=== PATIENT | male | born 1945 | race Caucasian/White ===

== ENCOUNTER → 2016-07-04 | Outpatient (CLI) | payer OTHER ==
[~2016-07-04] MED LIST: ACET500C PO; ACYC1CAP8 PO; AMLO5TAB2 PO; ATOR1TAB21 PO; BENA25CA2 PO; CHLO25TA PO; CIAL20TA PO; COLA100C PO; FLON1SPR; OMEP10CASR PO; PERC5TAB6 PO; TETR250C3 PO
== END ==
LOC: M ONCR 15:09
PROVIDERS: ATTEND Radiology Radiation Oncology
DX: C61 Malignant neoplasm of prostate (principal)

== ENCOUNTER → 2016-07-06 | Outpatient (CLI) | payer OTHER | LOC: M ONCR 13:42 | PROVIDERS: ATTEND Radiology Radiation Oncology | DX: C61 Malignant neoplasm of prostate (principal) ==

== ENCOUNTER 2016-07-18 16:46 | Emergency (ER) | payer MEDICARE, OTHER ==
[2016-07-18] MEDS ORDERED: ASPIRIN 81 MG CHEW TABLET As Ordered ONE (17:45)
[2016-07-18 17:54] LABS: BASO % 0.7 % (0.0-1.0); EOS # 0.2 K/mm3 (0.0-0.50); EOS % 3.1 % (0.0-3.0); LARGE UNSTAINED CELL # 0.2 K/mm3 (0.0-0.4); LYMPH % 15.7 % (24.0-44.0); MEAN CORPUSCULAR HEMOGLOBIN 32.2 pg (27.0-33.0); MEAN CORPUSCULAR HGB CONC 34.4 g/dl (32.0-36.5); MEAN CORPUSCULAR VOLUME 93.8 fl (80.0-96.0); MONO # 0.4 K/mm3 (0.0-0.8); MONO % 6.2 % (0.0-5.0); NEUTROPHILS # 4.6 K/mm3 (1.8-7.7); NEUTROPHILS % 71.2 % (36.0-66.0); PLATELET COUNT, AUTOMATED 241 k/mm3 (150-450); WHITE BLOOD COUNT 6.5 K/mm3 (4.0-10.0)
--- NOTE | 2016-07-18 17:54 | REP ---
Chest one-view HISTORY: Chest pain Comparison: 10/14/2015 The lungs are clear. The heart is normal in size. The pulmonary vasculature is normal in appearance. Impression: No acute disease. Signed by Yousif Day MD 07/18/2016 05:46 P
[2016-07-18 18:24] LABS: ANION GAP 9 MEQ/L (8-16); BLOOD UREA NITROGEN 8 MG/DL (7-18); CALCIUM LEVEL 9.3 MG/DL (8.8-10.2); CARBON DIOXIDE LEVEL 28 MEQ/L (21-32); CHLORIDE LEVEL 99 MEQ/L (98-107); CREATININE FOR GFR 0.78 MG/DL (0.70-1.30); GLOMERULAR FILTRATION RATE > 60.0 (>49); GLUCOSE, FASTING 101 MG/DL (80-110); POTASSIUM SERUM 3.1 MEQ/L (3.5-5.1); SODIUM LEVEL 136 MEQ/L (136-145)
--- NOTE | 2016-07-18 19:15 | EDDOCDS ---
Nurse's Notes [facility] Name: Ravi Eid Age: 70 yrs Sex: Male : 1945 Arrival Date: 07/18/2016 Time: 16:46 Bed 12 Private MD: Manjinder Jade M Diagnosis: Chest pain, unspecified Presentation: 07/18 16:54 Presenting complaint: Patient states: pt c/o chest pain since last night. denies sob. ead Aspirin was not taken prior to arrival. Adult Sepsis Screening: The patient does not have new or worsening altered mentation. Patient's respiratory rate is less than 22. Systolic blood pressure is greater than 100. Patient has a qSOFA score of 0- Negative Sepsis Screen. Suicide/Homicide risk assessment- the patient denies having any suicidal and/or homicidal ideations and does not present with any other emotional, behavioral or mental health complaints. 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 Transition of care: patient was not received from another setting of care. 16:54 Acuity: HONG Level 3 ead 16:54 Method Of Arrival: Walkin/Carried/Asstd ead 17:00 Red Flag criteria, patient assessed and taken directly to a bed. ead Triage Assessment: 16:57 General: Appears in no apparent distress, Behavior is appropriate for age, cooperative. ead Pain: Location: diaphragm and left breast Pain currently is 3 out of 10 on a pain scale. At worst was 5 out of 10 on a pain scale. Neurological: No deficits noted. Cardiovascular: Chest pain is described as mild, radiates Does not radiate. episodes are intermittent began last night. Respiratory: Denies shortness of breath. Derm: Skin is pink, warm & dry. Historical: - Home Meds: 1. Chlorthalidone Oral once daily 2. Omeprazole Oral once daily 3. Amlodipine Oral once daily 4. Acyclovir Unknown Oral once a day 5. Oxybutynin Chloride Oral once daily 6. atorvastatin oral oral once daily - PMHx: prostate cancer; Hypertension; Hypercholesterolemia; - PSHx: Right Undescended Testicle Surgery; Right Femur/Hip Fracture Repair; bilateral shoulder fractures; - Social history: Smoking status: Patient uses tobacco products, current every day smoker. No barriers to communication noted, The patient speaks fluent Azeri, Speaks appropriately for age, Smoking status: . - Family history: Not pertinent. - : The pt / caregiver states he / she is not on anticoagulants. Home medication list is obtained from the patient. - Exposure Risk Screening:: None identified. Screenin:50 Screening information is obtained from the patient. Fall risk: No risks identified. rs3 Assistance ADL's: requires no assistance with activities of daily living. Abuse/DV Screen: The patient / caregiver reports he/she is: not in a situation that causes fear, pain or injury. Nutritional screening: No deficits noted. Advance Directives: Currently, there is no health care proxy. home support is adequate. Assessment: 17:49 General: Appears in no apparent distress, Behavior is appropriate for age, cooperative. rs3 Pain: Location: chest. Neurological: Level of Consciousness is awake, alert, Oriented to person, place, time. Cardiovascular: Rhythm is regular Chest pain is denied. Respiratory: Airway is patent Respiratory effort is even, unlabored, Respiratory pattern is regular, symmetrical, Breath sounds are clear bilaterally. Derm: Skin is pink, warm & dry. 18:37 General: Appears in no apparent distress, Behavior is cooperative, denies of chest rs3 pain/distress. resting comfortable on stretcher. waiting for test results. . 19:05 General: Verbal report given by Deepa Augustin RN. Assumed care of patient at this time.. kas2 Vital Signs: 16:48 BP 151 / 73; Pulse 90; Resp 18; Temp 97.6(O); Pulse Ox 96% on R/A; Weight 82.1 kg (R); ct3 Height 5 ft. 9 in. (175.26 cm) (R); Pain 5/10; 19:06 BP 152 / 83; Pulse 85; Resp 18; Temp 99.0(TE); Pulse Ox 95% on R/A; Pain 0/10; mdr 16:48 Body Mass Index 26.73 (82.10 kg, 175.26 cm) ct3 Vitals: 16:48 Log In Time: July 18, 2016 at 16:45. ct3 16:49 RN notified that patient meets Red Flag criteria. ct3 ED Course: 16:47 Patient visited by Betina Short PCA. ct3 16:47 Manjinder Jade is Private Physician. ct3 16:47 Patient moved to Waiting ct3 16:52 Martha Madrid,ADAMARIS is Primary Nurse. 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 Pulse ox on. NIBP on. ead 17:02 Patient visited by Yariel Henson. jml1 17:02 EKG done. (by ED staff). Reviewed by Lina Woodard MD. jml1 17:08 Lina Woodard MD is Attending Physician. ml 17:08 Patient visited by Lina Woodard MD. ml 17:49 Patient visited by Martha Madrid RN. rs3 17:49 D-Dimer Quant Sent. rs3 17:49 CBC with Diff Sent. rs3 17:49 MED Profile Sent. rs3 17:49 CIP Sent. rs3 17:49 Troponin Sent. rs3 17:50 Inserted saline lock: 20 gauge in left antecubital area and blood collected. Labs rs3 drawn. (by ED staff). 18:28 Chest, 1 View Returned. EDMS 18:37 Patient visited by Martha Madrid RN. rs3 18:55 Manjinder Jade is Referral Physician. ml 19:05 Patient visited by Shellie Willoughby RN. kas2 19:06 Patient visited by Helio Miguel PCA. mdr 19:13 Discontinued IV bleeding controlled, pressure dressing applied, No redness/swelling at kas2 site. No procedures done that require assistance. 19:14 Patient visited by Shellie Willoughby RN. kas2 19:14 The patient / caregiver is instructed regarding the plan of care and ED course. kas2 Administered Medications: 17:49 Drug: Aspirin 324 mg [aspirin 81 mg chewable tablet (4 tabs)] Route: PO; rs3 Order Results: Lab Order: CBC with Diff; SPEC'M 07/18/16 17:36 Test: WHITE BLOOD COUNT; Value: 6.5; Range: 4.0-10.0; Units: K/mm3; Status: F Test: RED BLOOD COUNT; Value: 4.35; Range: 4.30-6.10; Units: M/mm3; Status: F Test: HEMOGLOBIN; Value: 14.0; Range: 14.0-18.0; Units: g/dl; Status: F Test: HEMATOCRIT; Value: 40.8; Range: 42.0-52.0; Abnormal: Below low normal; Units: %; Status: F Test: MEAN CORPUSCULAR VOLUME; Value: 93.8; Range: 80.0-96.0; Units: fl; Status: F Test: MEAN CORPUSCULAR HEMOGLOBIN; Value: 32.2; Range: 27.0-33.0; Units: pg; Status: F Test: MEAN CORPUSCULAR HGB CONC; Value: 34.4; Range: 32.0-36.5; Units: g/dl; Status: F Test: RED CELL DISTRIBUTION WIDTH; Value: 13.0; Range: 11.5-14.5; Units: %; Status: F Test: PLATELET COUNT, AUTOMATED; Value: 241; Range: 150-450; Units: k/mm3; Status: F Test: NEUTROPHILS %; Value: 71.2; Range: 36.0-66.0; Abnormal: Above high normal; Units: %; Status: F Test: LYMPH %; Value: 15.7; Range: 24.0-44.0; Abnormal: Below low normal; Units: %; Status: F Test: MONO %; Value: 6.2; Range: 0.0-5.0; Abnormal: Above high normal; Units: %; Status: F Test: EOS %; Value: 3.1; Range: 0.0-3.0; Abnormal: Above high normal; Units: %; Status: F Test: BASO %; Value: 0.7; Range: 0.0-1.0; Units: %; Status: F Test: LARGE UNSTAINED CELL %; Value: 3.0; Range: 0.0-4.0; Units: %; Status: F Test: NEUTROPHILS #; Value: 4.6; Range: 1.8-7.7; Units: K/mm3; Status: F Test: LYMPH #; Value: 1.0; Range: 1.5-4.5; Abnormal: Below low normal; Units: K/mm3; Status: F Test: MONO #; Value: 0.4; Range: 0.0-0.8; Units: K/mm3; Status: F Test: EOS #; Value: 0.2; Range: 0.0-0.50; Units: K/mm3; Status: F Test: BASO #; Value: 0.0; Range: 0.0-0.2; Units: K/mm3; Status: F Test: LARGE UNSTAINED CELL #; Value: 0.2; Range: 0.0-0.4; Units: K/mm3; Status: F Lab Order: MED Profile; SPEC'M 07/18/16 17:36 Test: GLUCOSE, FASTING; Value: 101; Range: 80-110; Units: MG/DL; Status: F Test: BLOOD UREA NITROGEN; Value: 8; Range: 7-18; Units: MG/DL; Status: F Test: CREATININE FOR GFR; Value: 0.78; Range: 0.70-1.30; Units: MG/DL; Status: F Test: GLOMERULAR FILTRATION RATE; Value: > 60.0; Range: >49; Status: F Test: SODIUM LEVEL; Value: 136; Range: 136-145; Units: MEQ/L; Status: F Test: POTASSIUM SERUM; Value: 3.1; Range: 3.5-5.1; Abnormal: Below low normal; Units: MEQ/L; Status: F Test: CHLORIDE LEVEL; Value: 99; Range: 98-107; Units: MEQ/L; Status: F Test: CARBON DIOXIDE LEVEL; Value: 28; Range: 21-32; Units: MEQ/L; Status: F Test: ANION GAP; Value: 9; Range: 8-16; Units: MEQ/L; Status: F Test: CALCIUM LEVEL; Value: 9.3; Range: 8.8-10.2; Units: MG/DL; Status: F Test Note: ; Units are mL/min/1.73 m2 Chronic Kidney Disease Staging per NKF: Stage I & II GFR >=60 Normal to Mildly Decreased Stage III GFR 30-59 Moderately Decreased Stage IV GFR 15-29 Severely Decreased Stage V GFR <15 Very Little GFR Left ESRD GFR <15 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 Lab Order: CIP; SPEC'07/18/16 17:36 Test: CPK CREATINE PHOSPHOKINASE; Value: 179; Range: 39-308; Units: U/L; Status: F Test: CK-MB VALUE MASS; Value: 2.6; Range: 0.0-3.6; Units: NG/ML; Status: F Test: MB/CK RELATIVE INDEX; Value: 1.45; Range: < OR =4; Status: F Test Note: ; DIAGNOSIS CRITERIA MMB ng/ml Relative Index (RI) NON-AMI < or = 5 N/A PERES ZONE > 5 < or = 4 AMI > 5 > 4 Lab Order: Troponin; SPEC'M 07/18/16 17:36 Test: TROPONIN I; Value: < 0.02; Range: < 0.10; Units: NG/ML; Status: F Test Note: ; Troponin I Reference Interval for [employer] LOCI: 99th Percentile= 0.00-0.045 ng/ml Risk Stratification: <= 0.10 ng/ml Decreased Risk for Adverse Clinical Events. 0.10-1.50 ng/ml Increased Risk for Adverse Clinical Events. Evaluation of additional criterion and/or repeat testing in 2-6 hours is suggested to rule out myocardial damage. >= 1.50 ng/ml Indicative of Myocardial Injury. Lab Order: D-Dimer Quant; SPEC'M 07/18/16 17:36 Test: D-DIMER QUANT; Value: 299.7; Range: <500; Units: ng/ml; Status: F Radiology Order: Chest, 1 View Test: Chest, 1 View REASON FOR EXAMINATION: Chest Pain; Chest one-view; ; HISTORY: Chest pain; ; Comparison: 10/14/2015; ; The lungs are clear. The heart is normal in size. The pulmonary vasculature is; normal in appearance.; ; Impression: No acute disease.; ; ; Signed by; Yousif Day MD 07/18/2016 05:46 P; Outcome: 18:56 Discharge ordered by Provider. 19:13 Discharge Assessment: patient administered narcotics - no. The following High Risk [facility] Discharge criteria are identified: None. Discharged to home ambulatory. Condition: good Condition: stable Condition: improved. 19:14 No special radiology studies were completed. Property :Personal belongings accompany Pt.[facility] 19:14 Patient left the ED. [facility] Signatures: Dispatcher [employer] EDLina Livingston MD MD ml Soosairaj, Rosemary, RN RN rs3 Betina Short, DIRECTOR OF HEALTH CARE MARKETING DIRECTOR OF HEALTH CARE MARKETING ct3 Yariel Henson jml1 Kathy Guerra RN RN Helio Martinez, DIRECTOR OF HEALTH CARE MARKETING DIRECTOR OF HEALTH CARE MARKETING Shellie Griffin RN RN kas2 MTDD
--- NOTE | 2016-07-18 19:15 | EDDOCDS ---
Physician Documentation [facility] Name: Ravi Eid Age: 70 yrs Sex: Male : 1945 Arrival Date: 07/18/2016 Time: 16:46 Bed 12 Private MD: Manjinder Jade M Disposition: 07/18/16 18:56 Discharged to Home/Self Care. Impression: Chest pain, unspecified. - Condition is Stable. - Discharge Instructions: Nonspecific Chest Pain. - Prescriptions for Aspirin 81 mg - take 1 tablet by ORAL route once daily; 90 tablet. - Medication Reconciliation, Local Pharmacy Hours form. - Follow up: Manjinder Jade; When: 1 - 2 days. - Problem is new. - Symptoms have improved. - Notes: call to follow up w Pito Jade. reurn if worsening symptomg Historical: - Home Meds: 1. Chlorthalidone Oral once daily 2. Omeprazole Oral once daily 3. Amlodipine Oral once daily 4. Acyclovir Unknown Oral once a day 5. Oxybutynin Chloride Oral once daily 6. atorvastatin oral oral once daily - PMHx: prostate cancer; Hypertension; Hypercholesterolemia; - PSHx: Right Undescended Testicle Surgery; Right Femur/Hip Fracture Repair; bilateral shoulder fractures; - Social history: Smoking status: Patient uses tobacco products, current every day smoker. No barriers to communication noted, The patient speaks fluent Georgian, Speaks appropriately for age, Smoking status: . - Family history: Not pertinent. - : The pt / caregiver states he / she is not on anticoagulants. Home medication list is obtained from the patient. - Exposure Risk Screening:: None identified. Vital Signs: 07/18 16:48 BP 151 / 73; Pulse 90; Resp 18; Temp 97.6(O); Pulse Ox 96% on R/A; Weight 82.1 kg / 181 ct3 lbs (R); Height 5 ft. 9 in. (175.26 cm) (R); Pain 5/10; 19:06 BP 152 / 83; Pulse 85; Resp 18; Temp 99.0(TE); Pulse Ox 95% on R/A; Pain 0/10; mdr 16:48 Body Mass Index 26.73 (82.10 kg, 175.26 cm) ct3 MDM: 16:55 ECG WITH READING ER PHYS+CARDIAG ordered. EDMS 17:30 IV Saline Lock ordered. ml 17:31 Aspirin Chewable Tablet 324 mg PO once ordered. ml 17:31 CBC with Diff Ordered. EDMS 17:31 MED Profile Ordered. EDMS 17:32 CIP Ordered. EDMS 17:32 Troponin Ordered. EDMS 17:32 D-Dimer Quant Ordered. EDMS 17:32 Chest, 1 View Ordered. EDMS 18:32 CBC with Diff Reviewed. ml 18:32 MED Profile Reviewed. ml 18:32 CIP Reviewed. ml 18:32 Troponin Reviewed. ml 18:32 D-Dimer Quant Reviewed. ml 18:32 Chest, 1 View Reviewed. ml 18:37 Financial registration complete. gjb 18:57 Misc. Nursing Order ordered. ml Administered Medications: 17:49 Drug: Aspirin 324 mg [aspirin 81 mg chewable tablet (4 tabs)] Route: PO; rs3 Signatures: Dispatcher [employer] EDCT Lina Woodard MD MD ml Dunaway, EmilyRN Ivania Tirado Kim, RN RN [facility] Martha Madrid RN rs3 STACI
--- NOTE | 2016-07-18 20:15 | ECGEPIP ---
Stationary ECG Study 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
--- NOTE | 2016-07-20 20:16 | EDDOCDS ---
Nurse's Notes [facility] Name: Ravi Eid Age: 70 yrs Sex: Male : 1945 Arrival Date: 07/18/2016 Time: 16:46 Bed 12 Private MD: Manjinder Jade M Diagnosis: Chest pain, unspecified Presentation: 07/18 16:54 Presenting complaint: Patient states: pt c/o chest pain since last night. denies sob. ead Aspirin was not taken prior to arrival. Adult Sepsis Screening: The patient does not have new or worsening altered mentation. Patient's respiratory rate is less than 22. Systolic blood pressure is greater than 100. Patient has a qSOFA score of 0- Negative Sepsis Screen. Suicide/Homicide risk assessment- the patient denies having any suicidal and/or homicidal ideations and does not present with any other emotional, behavioral or mental health complaints. 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 Transition of care: patient was not received from another setting of care. 16:54 Acuity: HONG Level 3 ead 16:54 Method Of Arrival: Walkin/Carried/Asstd ead 17:00 Red Flag criteria, patient assessed and taken directly to a bed. ead Triage Assessment: 16:57 General: Appears in no apparent distress, Behavior is appropriate for age, cooperative. ead Pain: Location: diaphragm and left breast Pain currently is 3 out of 10 on a pain scale. At worst was 5 out of 10 on a pain scale. Neurological: No deficits noted. Cardiovascular: Chest pain is described as mild, radiates Does not radiate. episodes are intermittent began last night. Respiratory: Denies shortness of breath. Derm: Skin is pink, warm & dry. Historical: - Home Meds: 1. Chlorthalidone Oral once daily 2. Omeprazole Oral once daily 3. Amlodipine Oral once daily 4. Acyclovir Unknown Oral once a day 5. Oxybutynin Chloride Oral once daily 6. atorvastatin oral oral once daily - PMHx: prostate cancer; Hypertension; Hypercholesterolemia; - PSHx: Right Undescended Testicle Surgery; Right Femur/Hip Fracture Repair; bilateral shoulder fractures; - Social history: Smoking status: Patient uses tobacco products, current every day smoker. No barriers to communication noted, The patient speaks fluent Sinhala, Speaks appropriately for age, Smoking status: . - Family history: Not pertinent. - : The pt / caregiver states he / she is not on anticoagulants. Home medication list is obtained from the patient. - Exposure Risk Screening:: None identified. Screenin:50 Screening information is obtained from the patient. Fall risk: No risks identified. rs3 Assistance ADL's: requires no assistance with activities of daily living. Abuse/DV Screen: The patient / caregiver reports he/she is: not in a situation that causes fear, pain or injury. Nutritional screening: No deficits noted. Advance Directives: Currently, there is no health care proxy. home support is adequate. Assessment: 17:49 General: Appears in no apparent distress, Behavior is appropriate for age, cooperative. rs3 Pain: Location: chest. Neurological: Level of Consciousness is awake, alert, Oriented to person, place, time. Cardiovascular: Rhythm is regular Chest pain is denied. Respiratory: Airway is patent Respiratory effort is even, unlabored, Respiratory pattern is regular, symmetrical, Breath sounds are clear bilaterally. Derm: Skin is pink, warm & dry. 18:37 General: Appears in no apparent distress, Behavior is cooperative, denies of chest rs3 pain/distress. resting comfortable on stretcher. waiting for test results. . 19:05 General: Verbal report given by Deepa Augustin RN. Assumed care of patient at this time.. kas2 Vital Signs: 16:48 BP 151 / 73; Pulse 90; Resp 18; Temp 97.6(O); Pulse Ox 96% on R/A; Weight 82.1 kg (R); ct3 Height 5 ft. 9 in. (175.26 cm) (R); Pain 5/10; 19:06 BP 152 / 83; Pulse 85; Resp 18; Temp 99.0(TE); Pulse Ox 95% on R/A; Pain 0/10; mdr 16:48 Body Mass Index 26.73 (82.10 kg, 175.26 cm) ct3 Vitals: 16:48 Log In Time: July 18, 2016 at 16:45. ct3 16:49 RN notified that patient meets Red Flag criteria. ct3 ED Course: 16:47 Patient visited by Betina Short PCA. ct3 16:47 Manjinder Jade is Private Physician. ct3 16:47 Patient moved to Waiting ct3 16:52 Martha Madrid,RN is Primary Nurse. ead 16:52 Patient moved to 12 ead 16:55 Triage Initiated ead 16:58 geometry tutor on. Pulse ox on. NIBP on. ead 17:02 Patient visited by Yariel Henson. jml1 17:02 EKG done. (by ED staff). Reviewed by Lina Woodard MD. jml1 17:08 Lina Woodard MD is Attending Physician. ml 17:08 Patient visited by Lina Woodard MD. ml 17:49 Patient visited by Martha Madrid RN. rs3 17:49 D-Dimer Quant Sent. rs3 17:49 CBC with Diff Sent. rs3 17:49 MED Profile Sent. rs3 17:49 CIP Sent. rs3 17:49 Troponin Sent. rs3 17:50 Inserted saline lock: 20 gauge in left antecubital area and blood collected. Labs rs3 drawn. (by ED staff). 18:28 Chest, 1 View Returned. EDMS 18:37 Patient visited by Martha Madrid RN. rs3 18:55 Manjinder Jade is Referral Physician. ml 19:05 Patient visited by Shellie Willoughby RN. kas2 19:06 Patient visited by Helio Miguel PCA. mdr 19:13 Discontinued IV bleeding controlled, pressure dressing applied, No redness/swelling at kas2 site. No procedures done that require assistance. 19:14 Patient visited by Shellie Willoughby RN. kas2 19:14 The patient / caregiver is instructed regarding the plan of care and ED course. kas2 19:37 [facility] [place] Agreement was scanned into Photoblog and attached to record. gjb 20:54 EKG-ADULT Returned. EDMS 0207 11:11 T-Sheet-- Draft Copy was scanned into Photoblog and attached to record. gb 11:12 ECG/EKG was scanned into Photoblog and attached to record. gb 11:12 Radiology Report was scanned into Photoblog and attached to record. gb Administered Medications: 07/18 17:49 Drug: Aspirin 324 mg [aspirin 81 mg chewable tablet (4 tabs)] Route: PO; rs3 Order Results: Lab Order: CBC with Diff; SPEC'M 02/06/17 17:36 Test: WHITE BLOOD COUNT; Value: 6.5; Range: 4.0-10.0; Units: K/mm3; Status: F Test: RED BLOOD COUNT; Value: 4.35; Range: 4.30-6.10; Units: M/mm3; Status: F Test: HEMOGLOBIN; Value: 14.0; Range: 14.0-18.0; Units: g/dl; Status: F Test: HEMATOCRIT; Value: 40.8; Range: 42.0-52.0; Abnormal: Below low normal; Units: %; Status: F Test: MEAN CORPUSCULAR VOLUME; Value: 93.8; Range: 80.0-96.0; Units: fl; Status: F Test: MEAN CORPUSCULAR HEMOGLOBIN; Value: 32.2; Range: 27.0-33.0; Units: pg; Status: F Test: MEAN CORPUSCULAR HGB CONC; Value: 34.4; Range: 32.0-36.5; Units: g/dl; Status: F Test: RED CELL DISTRIBUTION WIDTH; Value: 13.0; Range: 11.5-14.5; Units: %; Status: F Test: PLATELET COUNT, AUTOMATED; Value: 241; Range: 150-450; Units: k/mm3; Status: F Test: NEUTROPHILS %; Value: 71.2; Range: 36.0-66.0; Abnormal: Above high normal; Units: %; Status: F Test: LYMPH %; Value: 15.7; Range: 24.0-44.0; Abnormal: Below low normal; Units: %; Status: F Test: MONO %; Value: 6.2; Range: 0.0-5.0; Abnormal: Above high normal; Units: %; Status: F Test: EOS %; Value: 3.1; Range: 0.0-3.0; Abnormal: Above high normal; Units: %; Status: F Test: BASO %; Value: 0.7; Range: 0.0-1.0; Units: %; Status: F Test: LARGE UNSTAINED CELL %; Value: 3.0; Range: 0.0-4.0; Units: %; Status: F Test: NEUTROPHILS #; Value: 4.6; Range: 1.8-7.7; Units: K/mm3; Status: F Test: LYMPH #; Value: 1.0; Range: 1.5-4.5; Abnormal: Below low normal; Units: K/mm3; Status: F Test: MONO #; Value: 0.4; Range: 0.0-0.8; Units: K/mm3; Status: F Test: EOS #; Value: 0.2; Range: 0.0-0.50; Units: K/mm3; Status: F Test: BASO #; Value: 0.0; Range: 0.0-0.2; Units: K/mm3; Status: F Test: LARGE UNSTAINED CELL #; Value: 0.2; Range: 0.0-0.4; Units: K/mm3; Status: F Lab Order: MED Profile; SPECM 07/18/16 17:36 Test: GLUCOSE, FASTING; Value: 101; Range: 80-110; Units: MG/DL; Status: F Test: BLOOD UREA NITROGEN; Value: 8; Range: 7-18; Units: MG/DL; Status: F Test: CREATININE FOR GFR; Value: 0.78; Range: 0.70-1.30; Units: MG/DL; Status: F Test: GLOMERULAR FILTRATION RATE; Value: > 60.0; Range: >49; Status: F Test: SODIUM LEVEL; Value: 136; Range: 136-145; Units: MEQ/L; Status: F Test: POTASSIUM SERUM; Value: 3.1; Range: 3.5-5.1; Abnormal: Below low normal; Units: MEQ/L; Status: F Test: CHLORIDE LEVEL; Value: 99; Range: 98-107; Units: MEQ/L; Status: F Test: CARBON DIOXIDE LEVEL; Value: 28; Range: 21-32; Units: MEQ/L; Status: F Test: ANION GAP; Value: 9; Range: 8-16; Units: MEQ/L; Status: F Test: CALCIUM LEVEL; Value: 9.3; Range: 8.8-10.2; Units: MG/DL; Status: F Test Note: ; Units are mL/min/1.73 m2 Chronic Kidney Disease Staging per NKF: Stage I & II GFR >=60 Normal to Mildly Decreased Stage III GFR 30-59 Moderately Decreased Stage IV GFR 15-29 Severely Decreased Stage V GFR <15 Very Little GFR Left ESRD GFR <15 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 Lab Order: CIP; SPEC'M 07/18/16 17:36 Test: CPK CREATINE PHOSPHOKINASE; Value: 179; Range: 39-308; Units: U/L; Status: F Test: CK-MB VALUE MASS; Value: 2.6; Range: 0.0-3.6; Units: NG/ML; Status: F Test: MB/CK RELATIVE INDEX; Value: 1.45; Range: < OR =4; Status: F Test Note: ; DIAGNOSIS CRITERIA MMB ng/ml Relative Index (RI) NON-AMI < or = 5 N/A PERES ZONE > 5 < or = 4 AMI > 5 > 4 Lab Order: Troponin; SPEC'M 07/18/16 17:36 Test: TROPONIN I; Value: < 0.02; Range: < 0.10; Units: NG/ML; Status: F Test Note: ; Troponin I Reference Interval for Audacious LOCI: 99th Percentile= 0.00-0.045 ng/ml Risk Stratification: <= 0.10 ng/ml Decreased Risk for Adverse Clinical Events. 0.10-1.50 ng/ml Increased Risk for Adverse Clinical Events. Evaluation of additional criterion and/or repeat testing in 2-6 hours is suggested to rule out myocardial damage. >= 1.50 ng/ml Indicative of Myocardial Injury. 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 The heart is normal in size. The pulmonary vasculature is; normal in appearance.; ; Impression: No acute disease.; ; ; Signed by; Yousif Day MD 07/18/2016 05:46 P; Outcome: 18:56 Discharge ordered by Provider. 19:13 Discharge Assessment: patient administered narcotics - no. The following High Risk [facility] Discharge criteria are identified: None. Discharged to home ambulatory. Condition: good Condition: stable Condition: improved. 19:14 No special radiology studies were completed. Property :Personal belongings accompany Pt.kas 19:14 [facility] left the ED. [facility] Signatures: Dispatcher MedHost EDMS Lina Woodard MD MD ml Barnhardt, Gloria, Reg Reg gb Martha Madrid,RN RN rs3 Betina Short, FOREIGN FOOD SPECIALTY COOK FOREIGN FOOD SPECIALTY COOK ct3 Yariel Henson Emily,RN Helio Trevizo, FOREIGN FOOD SPECIALTY COOK FOREIGN FOOD SPECIALTY COOK mdr Ivania Lugo Kim,RN RN kas2 Chart Complete MTDD
--- NOTE | 2016-07-20 20:16 | EDDOCDS ---
Physician Documentation [facility] Name: Ravi Eid Age: 70 yrs Sex: Male : 1945 Arrival Date: 07/18/2016 Time: 16:46 Bed 12 Private MD: Manjinder Jade M Disposition: 07/18/16 18:56 Discharged to Home/Self Care. Impression: Chest pain, unspecified. - Condition is Stable. - Discharge Instructions: Nonspecific Chest Pain. - Prescriptions for Aspirin 81 mg - take 1 tablet by ORAL route once daily; 90 tablet. - Medication Reconciliation, Local Pharmacy Hours form. - Follow up: Manjinder Jade; When: 1 - 2 days. - Problem is new. - Symptoms have improved. - Notes: call to follow up w Pito Jade. reurn if worsening symptomg Historical: - Home Meds: 1. Chlorthalidone Oral once daily 2. Omeprazole Oral once daily 3. Amlodipine Oral once daily 4. Acyclovir Unknown Oral once a day 5. Oxybutynin Chloride Oral once daily 6. atorvastatin oral oral once daily - PMHx: prostate cancer; Hypertension; Hypercholesterolemia; - PSHx: Right Undescended Testicle Surgery; Right Femur/Hip Fracture Repair; bilateral shoulder fractures; - Social history: Smoking status: Patient uses tobacco products, current every day smoker. No barriers to communication noted, The patient speaks fluent Uzbek, Speaks appropriately for age, Smoking status: . - Family history: Not pertinent. - : The pt / caregiver states he / she is not on anticoagulants. Home medication list is obtained from the patient. - Exposure Risk Screening:: None identified. Vital Signs: 07/18 16:48 BP 151 / 73; Pulse 90; Resp 18; Temp 97.6(O); Pulse Ox 96% on R/A; Weight 82.1 kg / 181 ct3 lbs (R); Height 5 ft. 9 in. (175.26 cm) (R); Pain 5/10; 19:06 BP 152 / 83; Pulse 85; Resp 18; Temp 99.0(TE); Pulse Ox 95% on R/A; Pain 0/10; mdr 16:48 Body Mass Index 26.73 (82.10 kg, 175.26 cm) ct3 MDM: 16:55 ECG WITH READING ER PHYS+CARDIAG ordered. EDMS 17:30 IV Saline Lock ordered. ml 17:31 Aspirin Chewable Tablet 324 mg PO once ordered. ml 17:31 CBC with Diff Ordered. EDMS 17:31 MED Profile Ordered. EDMS 17:32 CIP Ordered. EDMS 17:32 Troponin Ordered. EDMS 17:32 D-Dimer Quant Ordered. EDMS 17:32 Chest, 1 View Ordered. EDMS 18:32 CBC with Diff Reviewed. ml 18:32 MED Profile Reviewed. ml 18:32 CIP Reviewed. ml 18:32 Troponin Reviewed. ml 18:32 D-Dimer Quant Reviewed. ml 18:32 Chest, 1 View Reviewed. ml 18:37 Financial registration complete. gjb 18:57 Misc. Nursing Order ordered. 19:37 [facility] Payment Agreement was scanned into Nano and attached to record. [facility] 07/19 11:11 T-Sheet-- Draft Copy was scanned into [employer] and attached to record. gb 11:12 ECG/EKG was scanned into OAT[employer] and attached to record. gb 11:12 Radiology Report was scanned into MEDHOST and attached to record. gb Administered Medications: 07/18 17:49 Drug: Aspirin 324 mg [aspirin 81 mg chewable tablet (4 tabs)] Route: PO; rs3 Signatures: Dispatcher MedHost EDLina Livingston MD MD ml Barnhardt, Gloria, Reg Reg Kathy Guerra,RN RN Ivania Silva Kim, RN RN [facility] Martha Madrid RN rs3 The chart was reviewed and I authenticate all verbal orders and agree with the evaluation and treatment provided.Attachments: 19:37 [facility] Payment Agreement [facility] 07/19 11:11 T-Sheet-- Draft Copy gb 11:12 ECG/EKG gb Chart Complete MTDD
--- NOTE | 2016-07-20 20:16 | EDDOCDS ---
Physician Documentation [facility] Name: Ravi Eid Age: 70 yrs Sex: Male : 1945 Arrival Date: 07/18/2016 Time: 16:46 Bed 12 Private MD: Manjinder Jade M Disposition: 07/18/16 18:56 Discharged to Home/Self Care. Impression: Chest pain, unspecified. - Condition is Stable. - Discharge Instructions: Nonspecific Chest Pain. - Prescriptions for Aspirin 81 mg - take 1 tablet by ORAL route once daily; 90 tablet. - Medication Reconciliation, Local Pharmacy Hours form. - Follow up: Manjinder Jade; When: 1 - 2 days. - Problem is new. - Symptoms have improved. - Notes: call to follow up w Pito Jade. reurn if worsening symptomg Historical: - Home Meds: 1. Chlorthalidone Oral once daily 2. Omeprazole Oral once daily 3. Amlodipine Oral once daily 4. Acyclovir Unknown Oral once a day 5. Oxybutynin Chloride Oral once daily 6. atorvastatin oral oral once daily - PMHx: prostate cancer; Hypertension; Hypercholesterolemia; - PSHx: Right Undescended Testicle Surgery; Right Femur/Hip Fracture Repair; bilateral shoulder fractures; - Social history: Smoking status: Patient uses tobacco products, current every day smoker. No barriers to communication noted, The patient speaks fluent Thai, Speaks appropriately for age, Smoking status: . - Family history: Not pertinent. - : The pt / caregiver states he / she is not on anticoagulants. Home medication list is obtained from the patient. - Exposure Risk Screening:: None identified. Vital Signs: 07/18 16:48 BP 151 / 73; Pulse 90; Resp 18; Temp 97.6(O); Pulse Ox 96% on R/A; Weight 82.1 kg / 181 ct3 lbs (R); Height 5 ft. 9 in. (175.26 cm) (R); Pain 5/10; 19:06 BP 152 / 83; Pulse 85; Resp 18; Temp 99.0(TE); Pulse Ox 95% on R/A; Pain 0/10; mdr 16:48 Body Mass Index 26.73 (82.10 kg, 175.26 cm) ct3 MDM: 16:55 ECG WITH READING ER PHYS+CARDIAG ordered. EDMS 17:30 IV Saline Lock ordered. ml 17:31 Aspirin Chewable Tablet 324 mg PO once ordered. ml 17:31 CBC with Diff Ordered. EDMS 17:31 MED Profile Ordered. EDMS 17:32 CIP Ordered. EDMS 17:32 Troponin Ordered. EDMS 17:32 D-Dimer Quant Ordered. EDMS 17:32 Chest, 1 View Ordered. EDMS 18:32 CBC with Diff Reviewed. ml 18:32 MED Profile Reviewed. ml 18:32 CIP Reviewed. ml 18:32 Troponin Reviewed. ml 18:32 D-Dimer Quant Reviewed. ml 18:32 Chest, 1 View Reviewed. ml 18:37 Financial registration complete. gjb 18:57 Misc. Nursing Order ordered. 19:37 [facility] Payment Agreement was scanned into [employer] and attached to record. [facility] 07/19 11:11 T-Sheet-- Draft Copy was scanned into [employer] and attached to record. gb 11:12 ECG/EKG was scanned into tapvivaHOST and attached to record. gb 11:12 Radiology Report was scanned into MEDHOST and attached to record. gb Administered Medications: 07/18 17:49 Drug: Aspirin 324 mg [aspirin 81 mg chewable tablet (4 tabs)] Route: PO; rs3 Signatures: Dispatcher MedHost EDLina Livingston MD MD ml Barnhardt, Gloria, Reg Reg Kathy Guerra,RN RN Ivania Silva Kim, RN RN [facility] Martha Madrid RN rs3 The chart was reviewed and I authenticate all verbal orders and agree with the evaluation and treatment provided.Attachments: 19:37 [facility] Payment Agreement [facility] 07/19 11:11 T-Sheet-- Draft Copy gb 11:12 ECG/EKG gb Chart Complete MTDD
== END 2016-07-18 19:14 | disposition home or self-care (01) ==
LOC: M ED 16:46
DX: R07.9 Chest pain, unspecified (principal); I10 Essential (primary) hypertension; E78.00 Pure hypercholesterolemia, unspecified; Z85.46 Personal history of malignant neoplasm of prostate; Z72.0 Tobacco use; Z79.899 Other long term (current) drug therapy

== ENCOUNTER → 2016-09-12 | Outpatient (CLI) | payer MEDICARE | LOC: M LAB 16:44 | PROVIDERS: ATTEND Urology | DX: C61 Malignant neoplasm of prostate (principal) ==

== ENCOUNTER → 2016-11-28 | Outpatient (CLI) | payer MEDICARE ==
[~2016-11-28] MED LIST changes: -ACYC1CAP8 PO; +ACYC200C8 PO; -COLA100C PO; +COLA100C5 PO; +PERC5TAB12 PO; -PERC5TAB6 PO; +TETR1CAP PO; -TETR250C3 PO
== END ==
LOC: M LAB 09:42
PROVIDERS: ATTEND Urology
DX: C61 Malignant neoplasm of prostate (principal); R35.0 Frequency of micturition; R53.83 Other fatigue; E78.4 Other hyperlipidemia
CPT/HCPCS: 36415; 80053; 80061; 81001; 84153; 84403; 84443; 87086; G0463

== ENCOUNTER → 2016-11-28 | Outpatient (CLI) | payer MEDICARE ==
[~2016-11-28] MED LIST changes: +ACYC1CAP8 PO; -ACYC200C8 PO; +COLA100C3 PO; -COLA100C5 PO; -PERC5TAB12 PO; +PERC5TAB6 PO; -TETR1CAP PO; +TETR250C3 PO
[2016-11-28 12:17] LABS: ALBUMIN 3.7 GM/DL (3.2-5.2); ALBUMIN/GLOBULIN RATIO 1.16 (1.00-1.93); ALKALINE PHOSPHATASE 82 U/L (45-117); ALT/SGPT 46 U/L (12-78); ANION GAP 8 MEQ/L (8-16); AST/SGOT 25 U/L (15-37); BILIRUBIN,TOTAL 0.4 MG/DL (0.2-1.0); BLOOD UREA NITROGEN 16 MG/DL (7-18); CALCIUM LEVEL 9.6 MG/DL (8.8-10.2); CARBON DIOXIDE LEVEL 28 MEQ/L (21-32); CHLORIDE LEVEL 101 MEQ/L (98-107); CHOLESTEROL LEVEL 226 MG/DL (<200); CREATININE FOR GFR 0.84 MG/DL (0.70-1.30); GLOMERULAR FILTRATION RATE > 60.0 (>49); GLUCOSE, FASTING 106 MG/DL (80-110); POTASSIUM SERUM 3.7 MEQ/L (3.5-5.1); SODIUM LEVEL 137 MEQ/L (136-145); TOTAL PROTEIN 6.9 GM/DL (6.4-8.2); TRIGLYCERIDES LEVEL 307 MG/DL (<150)
== END ==
LOC: M LAB 09:40
PROVIDERS: ATTEND Physician Assistant
DX: I10 Essential (primary) hypertension (principal); E78.4 Other hyperlipidemia; R53.83 Other fatigue

== ENCOUNTER → 2017-02-17 | Outpatient (CLI) | payer MEDICARE ==
[~2017-02-17] MED LIST changes: -ACYC1CAP8 PO; +ACYC200C8 PO; -COLA100C3 PO; +COLA100C5 PO; +PERC5TAB12 PO; -PERC5TAB6 PO; +TETR1CAP PO; -TETR250C3 PO
[2017-02-17 13:04] LABS: ALBUMIN 3.7 GM/DL (3.2-5.2); ALBUMIN/GLOBULIN RATIO 1.09 (1.00-1.93); ALKALINE PHOSPHATASE 93 U/L (45-117); ALT/SGPT 60 U/L (12-78); ANION GAP 8 MEQ/L (8-16); AST/SGOT 36 U/L (15-37); BILIRUBIN,TOTAL 0.6 MG/DL (0.2-1.0); BLOOD UREA NITROGEN 12 MG/DL (7-18); CALCIUM LEVEL 9.2 MG/DL (8.8-10.2); CARBON DIOXIDE LEVEL 30 MEQ/L (21-32); CHLORIDE LEVEL 99 MEQ/L (98-107); CHOLESTEROL LEVEL 223 MG/DL (<200); CREATININE FOR GFR 0.84 MG/DL (0.70-1.30); GLOMERULAR FILTRATION RATE > 60.0 (>49); GLUCOSE, FASTING 107 MG/DL (80-110); POTASSIUM SERUM 3.8 MEQ/L (3.5-5.1); SODIUM LEVEL 137 MEQ/L (136-145); TOTAL PROTEIN 7.1 GM/DL (6.4-8.2); TRIGLYCERIDES LEVEL 240 MG/DL (<150)
== END ==
LOC: M LAB 11:39
PROVIDERS: ATTEND Physician Assistant
DX: I10 Essential (primary) hypertension (principal); C61 Malignant neoplasm of prostate

== ENCOUNTER → 2017-02-17 | Outpatient (CLI) | payer MEDICARE | LOC: M LAB 11:36 | PROVIDERS: ATTEND Urology | DX: C61 Malignant neoplasm of prostate (principal) ==

== ENCOUNTER → 2017-02-28 | Outpatient (CLI) | payer MEDICARE ==
--- NOTE | 2017-03-01 00:32 | REP ---
Scrotal ultrasound: A comparison is 12/19/2012. The patient has a known of seven right testis. The right testis is undescended again is identified within the inguinal canal. The right testis is small size measuring 3.2 x 1.1 x 2.7 cm. This is not unusual for an undescended testis. There is no right testicular mass. Left testis is normal size measuring 5.57 x 3.2 cm. There is no left testicular mass. With Doppler assessment there is vascular flow in both right and left testes. The Doppler resistive index of the intraparenchymal arteries on the right testis is 0.50, left testis 0.53. Impression: Undescended right testicle as a small size. There is no right testicular mass. Left testis is normal size and otherwise unremarkable. There is no left testicular mass. There is a single small calcification in the left testis. There is a small left hydrocele. The right epididymis cannot be identified. The left epididymis is unremarkable. Balloon There is a small left hydrocele. No significant interval change. Signed by Reji Ann MD 02/28/2017 04:20 P
== END ==
LOC: M SMT 13:57
PROVIDERS: ATTEND Urology
DX: Q53.9 Undescended testicle, unspecified (principal)

== ENCOUNTER → 2017-03-15 | Outpatient (CLI) | payer MEDICARE ==
--- NOTE | 2017-03-16 07:13 | RADONC ---
RADIATION ONCOLOGY FOLLOWUP NOTE DATE: 03/15/2017 CHART NUMBER: [id number] DIAGNOSIS: Prostate cancer. STAGE: II A, [id number]. ECOG PERFORMANCE STATUS: 0. FOLLOWUP NOTE: Mr. Eid is a very pleasant 71-year-old white male with the diagnosis of a stage II A, [id number], moderate to poorly differentiated Chelo score 7 (3-4) adenocarcinoma of the prostate who is presenting to us today for routine followup visit 10 months post completion of external beam radiation therapy. The patient presents today reporting that he is doing quite well with no complaints at this time related to radiation therapy or disease. He is having no urinary or bowel difficulties and no bone pain. REVIEW OF SYSTEMS: The patient's review of systems is noncontributory. Denies nausea, vomiting, fevers, chills, night sweats, diplopia, headaches, anxiety or depression, anorexia, weight loss, visual disturbances, chest pain, urinary or bowel difficulties, bone pain, or neurological problems. PHYSICAL EXAMINATION: The patient is a well-developed, well-nourished male in no acute distress. HEENT exam is normocephalic, atraumatic. Extraocular movements are intact. There is no palpable cervical, supraclavicular, infraclavicular, axillary, or inguinal lymphadenopathy present. Lungs are clear to auscultation and percussion. Heart has a regular rate and rhythm. Abdomen is benign with no hepatosplenomegaly, masses, or tenderness. Rectal examination reveals a normal anal sphincter tone. The patient's prostate bed is smooth with no evidence of nodularity. Skeletal examination reveals no tenderness to pressure or percussion of the bony skeleton. Extremities reveal no clubbing, cyanosis, or edema. Neurologic exam is grossly intact, as is the remainder of the physical examination. ASSESSMENT: The patient is clinically JOSE at this time and will be seen by us again in 6 months for further followup. He will also continue be followed by his other physicians as well. cc: MD Manjinder Nieto, RPA-C
== END ==
LOC: M ONCR 13:48
PROVIDERS: ATTEND Radiology Radiation Oncology
DX: C61 Malignant neoplasm of prostate (principal)

== ENCOUNTER → 2017-04-24 | Outpatient (CLI) | payer MEDICARE | LOC: M LAB 15:58 | PROVIDERS: ATTEND Urology | DX: C61 Malignant neoplasm of prostate (principal) ==

== ENCOUNTER → 2017-05-24 | Outpatient (REF) | payer MEDICARE | LOC: M SFHCPLAZ 13:05 | PROVIDERS: ATTEND Family Medicine | DX: E78.2 Mixed hyperlipidemia (principal) ==

== ENCOUNTER → 2017-05-31 | Outpatient (CLI) | payer MEDICARE ==
--- NOTE | 2017-05-31 19:32 | REP ---
LOW DOSE LUNG SCREENING CT: Low dose lung screening CT performed without IV contrast. There are scattered interstitial fibrotic changes bilaterally. No suspicious nodules are seen. Calcified granuloma seen in the right middle lobe. No contour abnormality is seen of the mediastinum or hilar regions. There are mild atherosclerotic calcifications of the thoracic aorta. Heart is not enlarged. No pleural effusion is seen. IMPRESSION: Category [address] No suspicious nodules. Recommend annual screening with low dose CT in 12 months. Signed by Reji Zamora MD 06/01/2017 08:30 P
== END ==
LOC: M RAD 11:21
PROVIDERS: ATTEND Family Medicine
DX: Z12.2 Encounter for screening for malignant neoplasm of respiratory organs (principal); F17.210 Nicotine dependence, cigarettes, uncomplicated

== ENCOUNTER → 2018-01-30 | Outpatient (CLI) | payer OTHER ==
[2018-01-30 15:13] LABS: PROSTATIC SPECIFIC AG MONITOR 0.17 NG/ML (< 4.0)
== END ==
LOC: M LAB 14:00
DX: C61 Malignant neoplasm of prostate (principal)

== ENCOUNTER → 2018-01-30 | Outpatient (CLI) | payer OTHER ==
[2018-01-30 15:11] LABS: CHOLESTEROL LEVEL 179 MG/DL (<200); CHOLESTEROL RISK RATIO 3.033 (<5); HDL CHOLESTEROL 59 MG/DL (>40); LDL CHOLESTEROL 69.2 MG/DL (<100); NON-HDL-C 120 MG/DL; TRIGLYCERIDES LEVEL 254 MG/DL (<150)
[2018-01-30 15:21] LABS: TOTAL 25(OH) VITAMIN D 21.5 NG/ML (30.0-100.0)
== END ==
LOC: M LAB 13:40
DX: M17.0 Bilateral primary osteoarthritis of knee (principal); M85.88 Other specified disorders of bone density and structure, other site; E78.2 Mixed hyperlipidemia; E55.9 Vitamin D deficiency, unspecified; M25.462 Effusion, left knee; M25.461 Effusion, right knee; C61 Malignant neoplasm of prostate
CPT/HCPCS: 73560

== ENCOUNTER → 2018-04-03 | Outpatient (CLI) | payer OTHER ==
[2018-04-03 23:35] LABS: PROSTATIC SPECIFIC AG MONITOR 0.21 NG/ML (< 4.0)
== END ==
LOC: M LAB 15:46
DX: C61 Malignant neoplasm of prostate (principal)
CPT/HCPCS: 84153

== ENCOUNTER 2018-04-17 06:53 | Day surgery (SDC) | payer OTHER ==
[2018-04-17] MEDS ORDERED: NS 1,000 ML IV (07:15)
[2018-04-17] MEDS ORDERED: PROPOFOL 500 MG/50 ML VIAL As Ordered ×3 (08:03→08:34)
[2018-04-17] MEDS ORDERED: LIDOCAINE 2% INJ 100 MG/5 ML SDV (FOR ANES.) As Ordered (08:03)
== END 2018-04-17 09:37 | disposition home or self-care (01) ==
LOC: M OPP 06:53
DX: Z12.11 Encounter for screening for malignant neoplasm of colon (principal); D12.2 Benign neoplasm of ascending colon; D12.3 Benign neoplasm of transverse colon; D12.5 Benign neoplasm of sigmoid colon; I10 Essential (primary) hypertension; E78.70 Disorder of bile acid and cholesterol metabolism, unspecified; K21.9 Gastro-esophageal reflux disease without esophagitis; M19.90 Unspecified osteoarthritis, unspecified site; F33.9 Major depressive disorder, recurrent, unspecified; M85.89 Other specified disorders of bone density and structure, multiple sites; F17.210 Nicotine dependence, cigarettes, uncomplicated; F17.220 Nicotine dependence, chewing tobacco, uncomplicated; Z85.46 Personal history of malignant neoplasm of prostate; Z98.890 Other specified postprocedural states; Z79.899 Other long term (current) drug therapy; Z79.82 Long term (current) use of aspirin; Z88.1 Allergy status to other antibiotic agents; Z88.8 Allergy status to other drugs, medicaments and biological substances
CPT/HCPCS: 45385

== ENCOUNTER → 2018-04-25 | Outpatient (CLI) | payer OTHER ==
[2018-04-25 12:17] LABS: CREATININE FOR GFR 0.87 MG/DL (0.70-1.30); GLOMERULAR FILTRATION RATE > 60.0 (>42)
[2018-04-25 12:17] LABS: BLOOD UREA NITROGEN 11 MG/DL (7-18)
== END ==
LOC: M LAB 11:26
DX: Z08 Encounter for follow-up examination after completed treatment for malignant neoplasm (principal); Y84.2 Radiological procedure and radiotherapy as the cause of abnormal reaction of the patient, or of later complication, without mention of misadventure at the time of the procedure
CPT/HCPCS: 82565

== ENCOUNTER → 2018-04-25 | Outpatient (CLI) | payer OTHER | LOC: M RAD 10:37 | DX: R22.1 Localized swelling, mass and lump, neck (principal) ==

== ENCOUNTER → 2018-05-07 | Outpatient (CLI) | payer OTHER ==
[~2018-05-07] MED LIST changes: -ACET500C PO; -ACYC200C8 PO; -AMLO5TAB2 PO; -ATOR1TAB21 PO; -BENA25CA2 PO; -CHLO25TA PO; -CIAL20TA PO; -COLA100C5 PO; -FLON1SPR; -OMEP10CASR PO; -PERC5TAB12 PO; +PROHANCE 279.3MG/ML 15ML VIAL (A9576) As Ordered; +PROHANCE 279.3MG/ML 5ML VIAL (A9576) As Ordered; -TETR1CAP PO
== END ==
LOC: M RAD 11:00
DX: R22.1 Localized swelling, mass and lump, neck (principal)
CPT/HCPCS: A9576

== ENCOUNTER → 2018-06-07 | Outpatient (CLI) | payer OTHER ==
[~2018-06-07] MED LIST changes: +ACET500C PO; +ACYC200C8 PO; +AMLO5TAB6 PO; +ASPI81TA85 PO; +ATOR1TAB21 PO; +BENA25CA2 PO; +CHLO25TA PO; +CIAL20TA PO; +COLA100C5 PO; +EZET10TA PO; +FLON1SPR; +OMEP10CASR PO; +OXYB10TA PO; +PERC5TAB12 PO; -PROHANCE 279.3MG/ML 15ML VIAL (A9576) As Ordered; -PROHANCE 279.3MG/ML 5ML VIAL (A9576) As Ordered; +TETR1CAP PO
== END ==
LOC: M SMT 11:59
PROVIDERS: ATTEND Urology
DX: C61 Malignant neoplasm of prostate (principal)
CPT/HCPCS: 36415; 84153; G0463

== ENCOUNTER → 2018-07-04 | Outpatient (CLI) | payer MEDICARE ==
--- NOTE | 2018-07-05 07:57 | REP ---
Clinical: Lung screening. History nicotine dependence Comparison: 05/31/2017 Technique: Axial low-dose noncontrast images from the thoracic inlet to the upper abdomen using lung screening technique. Findings: The lung fish are well-aerated. Scattered chronic changes remain stable. No consolidation, significant nodule or mass lesion is appreciated. No pleural effusion/reaction or pneumothorax. Tracheobronchial tree is patent. Mediastinum demonstrates atherosclerotic changes of the coronary arteries without cardiomegaly. Impression: 1. Lung-RADS category I. No nodule or suspicious abnormality. 2. Chronic stable changes are identified and management recommendations include annual low-dose CT evaluation. Electronically Signed by Pito Patino MD 07/05/2018 07:49 A
== END ==
LOC: M RAD 12:57
PROVIDERS: ATTEND Family Medicine
DX: Z12.12 Encounter for screening for malignant neoplasm of rectum (principal); Z87.891 Personal history of nicotine dependence; C61 Malignant neoplasm of prostate
CPT/HCPCS: 87086; G0297

== ENCOUNTER → 2018-07-04 | Outpatient (REF) | payer OTHER | LOC: M SMT 13:24 | PROVIDERS: ATTEND Nurse Practitioner Family | DX: C61 Malignant neoplasm of prostate (principal) ==

== ENCOUNTER 2018-07-31 08:39 | Day surgery (SDC) | payer MEDICARE ==
[~2018-07-31] VITALS: Ht 175.3 cm; Wt 78.5 kg
[~2018-07-31 08:39] MED LIST changes: +ASPI325T PO; +PERI12LIQ MT
[2018-07-31] MEDS ORDERED: PROPOFOL 200 MG/20 ML VIAL As Ordered ONE ×2 (09:24→10:52)
[2018-07-31] MEDS ORDERED: LIDOCAINE 2% INJ 100 MG/5 ML SDV (FOR ANES.) As Ordered ONE (09:24)
[2018-07-31] MEDS ORDERED: NS 1,000 ML IV ONE (09:45)
--- NOTE | 2018-07-31 11:15 | ROOR ---
Patient Name: Ravi Eid Procedure Date: 07/31/2018 10:14 AM Date of : 1945 Age: 72 Room: [facility] Gender: Male Note Status: Finalized Procedure: Colonoscopy Indications: Therapeutic procedure for known colon adenoma Providers: Brandon SKINNER MD Referring MD: Sean Ruby MD Requesting Provider: Medicines: Monitored Anesthesia Care Complications: No immediate complications. Procedure: Pre-Anesthesia Assessment: - The heart rate, respiratory rate, oxygen saturations, blood pressure, adequacy of pulmonary ventilation, and response to care were monitored throughout the procedure. The Colonoscope was introduced through the anus and advanced to the cecum, identified by appendiceal orifice and ileocecal valve. The colonoscopy was technically difficult and complex. Successful completion of the procedure was aided by changing the patient to a supine position. Findings: The perianal and digital rectal examinations were normal. A tattoo was seen in the proximal ascending colon. A post-polypectomy scar with residual polyp tissue was found at the tattoo site. A 15 mm residual polyp was found in the proximal ascending colon (at the tattoo site). The polyp was multi-lobulated. The polyp was removed with a piecemeal technique using a hot snare. Resection and retrieval were complete. A 7 mm polyp was found in the splenic flexure. The polyp was sessile. The polyp was removed with a hot snare. Resection and retrieval were complete. The exam was otherwise without abnormality on direct and retroflexion views. Impression: - A tattoo was seen in the proximal ascending colon. A post-polypectomy scar was found at the tattoo site. - One 15 mm residual polyp in the proximal ascending colon (in the area of the tattoo), removed piecemeal using a hot snare. Resected and retrieved. - One 7 mm polyp at the splenic flexure, removed with a hot snare. Resected and retrieved. - The examination was otherwise normal on direct and retroflexion views. Recommendation: - Repeat colonoscopy in 2 years for surveillance after piecemeal polypectomy. - (FYI: Location of this residual polyp was close to the ICV, under a fold. Access here is quite difficult, and it is only accessible in retroflexed position in cecum, with patient in supine position). Brandon Skinner MD Brandon SKINNER MD 07/31/2018 11:14:40 AM This report has been signed electronically. Number of Addenda: 0 Note Initiated On: 07/31/2018 10:14 AM Estimated Blood Loss: Estimated blood loss: none.
[2018-07-31 11:25] VITALS: BP 120/60
== END 2018-07-31 12:00 | disposition home or self-care (01) ==
LOC: M OPP 08:39
PROVIDERS: ATTEND Internal Medicine Gastroenterology
DX: Z86.010 Personal history of colon polyps (principal); D12.2 Benign neoplasm of ascending colon; D12.3 Benign neoplasm of transverse colon; K21.9 Gastro-esophageal reflux disease without esophagitis; K57.30 Diverticulosis of large intestine without perforation or abscess without bleeding; Z79.82 Long term (current) use of aspirin; Z79.899 Other long term (current) drug therapy; Z88.8 Allergy status to other drugs, medicaments and biological substances; Z85.46 Personal history of malignant neoplasm of prostate; F17.210 Nicotine dependence, cigarettes, uncomplicated

== ENCOUNTER 2018-08-27 15:54 | Emergency (ER) | payer MEDICARE ==
[~2018-08-27] VITALS: Ht 175.3 cm; Wt 74.8 kg
[2018-08-27 15:55] VITALS: BP 112/55
[2018-08-27] MEDS ORDERED: AMPICILLIN SOD/SULBACTAM SOD 3 GM in D5W MINI-BAG PLUS 100 ML IV ONE (16:30)
[2018-08-27] MEDS ORDERED: KETOROLAC 30 MG/ML VIAL (J1885) IV ONE (16:30)
[2018-08-27 16:43] LABS: BASO # 0.1 10^3/uL (0.0-0.2); BASO % 0.4 % (0.0-1.0); EOS # 0.2 10^3/uL (0.0-0.50); EOS % 1.7 % (0.0-3.0); HEMATOCRIT 40.8 % (42.0-52.0); HEMOGLOBIN 14.2 g/dl (13.5-17.5); LYMPH # 1.6 10^3/uL (1.5-4.5); LYMPH % 12.2 % (24.0-44.0); MEAN CORPUSCULAR HEMOGLOBIN 31.3 pg (27.0-33.0); MEAN CORPUSCULAR HGB CONC 34.8 g/dl (32.0-36.5); MEAN CORPUSCULAR VOLUME 90.1 fl (80.0-96.0); MONO # 1.1 10^3/uL (0.0-0.8); MONO % 8.3 % (0.0-5.0); NEUTROPHILS # 10.3 10^3/uL (1.8-7.7); NEUTROPHILS % 76.7 % (36.0-66.0); PLATELET COUNT, AUTOMATED 471 10^3/uL (150-450); RED BLOOD COUNT 4.53 10^6/uL (4.30-6.10); WHITE BLOOD COUNT 13.4 10^3/uL (4.0-10.0)
[2018-08-27] MEDS ORDERED: IPRATROPIUM 0.5MG/ALBUTEROL 2.5MG INH SOL UD 3ML (DUONEB)(J7620) NEB ONE (16:45)
[2018-08-27 17:03] LABS: BLOOD UREA NITROGEN 10 MG/DL (7-18); CALCIUM LEVEL 9.2 MG/DL (8.8-10.2); CARBON DIOXIDE LEVEL 29 MEQ/L (21-32); CHLORIDE LEVEL 96 MEQ/L (98-107); CREATININE FOR GFR 0.98 MG/DL (0.70-1.30); GLOMERULAR FILTRATION RATE > 60.0 (>42); GLUCOSE, FASTING 98 MG/DL (70-100); POTASSIUM SERUM 3.1 MEQ/L (3.5-5.1); SODIUM LEVEL 133 MEQ/L (136-145)
[2018-08-27 17:13] LABS: INFLUENZA A AMPLIFICATION NEGATIVE (NEGATIVE); INFLUENZA B AMPLIFICATION NEGATIVE (NEGATIVE)
[2018-08-27] MEDS ORDERED: VENTAER INH (17:38)
[2018-08-27] MEDS ORDERED: BENZ200C70 PO (17:38)
[2018-08-27] MEDS ORDERED: AUGM875T28 PO (17:38)
[2018-08-27] MEDS ORDERED: ACET-683 PO (17:40)
[2018-08-27] MEDS ORDERED: POTASSIUM CHLORIDE 10 MEQ SR TABLET PO ONE (17:45)
--- NOTE | 2018-08-27 18:49 | REP ---
Chest x-ray: Two views. History: Cough shortness of breath. Tobacco use. Comparison study: July 18, 2016. Findings: The lungs are well inflated and free of infiltrate. Pleural angles are sharp. Heart size is normal. Pulmonary vasculature is not increased. No significant bony abnormality is seen. Impression: No active disease. Electronically Signed by Andres Ramsay MD 08/27/2018 07:22 P
== END 2018-08-27 18:00 | disposition home or self-care (01) ==
LOC: M ED 15:54
DX: K04.7 Periapical abscess without sinus (principal); J06.9 Acute upper respiratory infection, unspecified; Z72.0 Tobacco use; R51 Headache; E78.00 Pure hypercholesterolemia, unspecified; I10 Essential (primary) hypertension; K21.9 Gastro-esophageal reflux disease without esophagitis; Z85.46 Personal history of malignant neoplasm of prostate; D75.9 Disease of blood and blood-forming organs, unspecified; Z79.82 Long term (current) use of aspirin; Z79.899 Other long term (current) drug therapy; Z88.1 Allergy status to other antibiotic agents; Z88.8 Allergy status to other drugs, medicaments and biological substances
CPT/HCPCS: 71046; 80048; 85025; 86140; 87502; 96365; 96375; 99283; J1885

== ENCOUNTER → 2018-08-29 | Outpatient (REF) | payer MEDICARE ==
[~2018-08-29] MED LIST changes: +ACET-683 PO; +ASPI-1 PO; -ASPI325T PO; +AUGM875T28 PO; +BENZ200C70 PO; +VENTAER INH
[2018-08-29 17:55] LABS: BASO # 0.1 10^3/uL (0.0-0.2); BASO % 0.7 % (0.0-1.0); EOS # 0.4 10^3/uL (0.0-0.50); EOS % 4.1 % (0.0-3.0); HEMATOCRIT 41.6 % (42.0-52.0); LYMPH # 1.6 10^3/uL (1.5-4.5); LYMPH % 16.5 % (24.0-44.0); MEAN CORPUSCULAR HEMOGLOBIN 31.4 pg (27.0-33.0); MEAN CORPUSCULAR HGB CONC 33.7 g/dl (32.0-36.5); MEAN CORPUSCULAR VOLUME 93.3 fl (80.0-96.0); MONO # 0.8 10^3/uL (0.0-0.8); MONO % 7.7 % (0.0-5.0); NEUTROPHILS # 6.9 10^3/uL (1.8-7.7); NEUTROPHILS % 69.9 % (36.0-66.0); PLATELET COUNT, AUTOMATED 519 10^3/uL (150-450); RED BLOOD COUNT 4.46 10^6/uL (4.30-6.10); WHITE BLOOD COUNT 9.9 10^3/uL (4.0-10.0)
[2018-08-29 18:30] LABS: ALBUMIN 3.3 GM/DL (3.2-5.2); BLOOD UREA NITROGEN 11 MG/DL (7-18); C REACTIVE PROTEIN QUANTITATIV 6.51 MG/DL (0.00-0.30); CALCIUM LEVEL 9.6 MG/DL (8.8-10.2); CARBON DIOXIDE LEVEL 32 MEQ/L (21-32); CHLORIDE LEVEL 94 MEQ/L (98-107); CREATININE FOR GFR 0.92 MG/DL (0.70-1.30); GLOMERULAR FILTRATION RATE > 60.0 (>42); GLUCOSE, FASTING 79 MG/DL (70-100); POTASSIUM SERUM 3.5 MEQ/L (3.5-5.1); SODIUM LEVEL 135 MEQ/L (136-145)
== END ==
LOC: M SFHCPLAZ 16:03
PROVIDERS: ATTEND Family Medicine
DX: R63.4 Abnormal weight loss (principal); R07.1 Chest pain on breathing; E87.1 Hypo-osmolality and hyponatremia; E87.6 Hypokalemia
CPT/HCPCS: 36415; 80048; 82040; 84134; 85025; 86140; 93005; 94010; G0463

== ENCOUNTER → 2018-09-18 | Outpatient (CLI) | payer MEDICARE | LOC: M LAB 14:56 | PROVIDERS: ATTEND Radiology Radiation Oncology | DX: C61 Malignant neoplasm of prostate (principal) ==

== ENCOUNTER → 2018-10-03 | Outpatient (CLI) | payer MEDICARE ==
--- NOTE | 2018-10-09 12:44 | RADONC ---
RADIATION ONCOLOGY FOLLOWUP NOTE DATE: 10/03/2018 CHART NUMBER: [id number] DIAGNOSIS: Prostate cancer. STAGE: II A, [id number] ECOG PERFORMANCE STATUS: 0 FOLLOWUP NOTE: Mr. Eid is a very pleasant, 72 year-old white male with the diagnosis of a stage II A, [id number], moderate to poorly differentiated, Chelo score 7 (3-4) adenocarcinoma of the prostate who is presenting to us today for routine followup visit 2 years and 4 months post completion of external beam radiation therapy. The patient presents today reporting that he is doing quite well with no complaints at this time related to his radiation therapy or disease. He has no urinary or bowel difficulties. No bone pain. REVIEW OF SYSTEMS: The patient's review of systems is noncontributory. Denies nausea, vomiting, fevers, chills, night sweats, diplopia, headaches, anxiety or depression, anorexia, weight loss, visual disturbances, chest pain, urinary or bowel difficulties, bone pain, or neurological problems. PHYSICAL EXAMINATION: The patient is a well-developed, well-nourished male in no acute distress. HEENT exam is normocephalic, atraumatic. Extraocular movements are intact. There is no palpable cervical, supraclavicular, infraclavicular, axillary, or inguinal lymphadenopathy present. Lungs are clear to auscultation and percussion. Heart has a regular rate and rhythm. Abdomen is benign with no hepatosplenomegaly, masses, or tenderness. Rectal examination reveals a normal anal sphincter tone. The patient's prostate bed is smooth with no evidence of nodularity or recurrent disease. Skeletal examination reveals no tenderness to pressure or percussion of the bony skeleton. Extremities reveal no clubbing, cyanosis, or edema. Neurologic exam is grossly intact, as is the remainder of the physical examination. ASSESSMENT: The patient is clinically JOSE at this time and will be seen by us again in 6 months for further followup. He will also continue to be followed by his other physicians as well. cc: MD Manjinder Nieto PA-C
== END ==
LOC: M ONCR 13:21
PROVIDERS: ATTEND Radiology Radiation Oncology
DX: Z85.46 Personal history of malignant neoplasm of prostate (principal); Z92.3 Personal history of irradiation

== ENCOUNTER → 2018-11-27 | Outpatient (CLI) | payer MEDICARE ==
[~2018-11-27] MED LIST changes: -EZET10TA PO; +EZET10TA21 PO
== END ==
LOC: M LAB 11:04
PROVIDERS: ATTEND Nurse Practitioner Family
DX: C61 Malignant neoplasm of prostate (principal)

== ENCOUNTER → 2018-12-28 | Outpatient (CLI) | payer MEDICARE | LOC: M LAB 13:17 | PROVIDERS: ATTEND Radiology Radiation Oncology | DX: C61 Malignant neoplasm of prostate (principal); R31.0 Gross hematuria ==

== ENCOUNTER → 2018-12-28 | Outpatient (REF) | payer MEDICARE ==
[2018-12-28 15:09] LABS: APPEARANCE, URINE CLOUDY (CLEAR); BACTERIA, URINE AUTO NEGATIVE (NEGATIVE); BILIRUBIN, URINE AUTO 1+ (NEGATIVE); BLOOD, URINE BLOOD 3+ (NEGATIVE); COLOR, URINE AMBER (YELLOW); GLUCOSE, URINE (UA) AUTO NEGATIVE (NEGATIVE); KETONE, URINE AUTO TRACE mg/dL (NEGATIVE); LEUKOCYTE ESTERASE, URINE AUTO TRACE (NEGATIVE); MUCUS, URINE LARGE (NEGATIVE); NITRITE, URINE AUTO NEGATIVE (NEGATIVE); PROTEIN, URINE AUTO 3+ mg/dL (NEGATIVE); RBC, URINE AUTO TNTC /HPF (0-3); SPECIFIC GRAVITY URINE AUTO 1.031 (1.002-1.035); SQUAMOUS EPITHELIAL CELL UR AU 6 /HPF (0-6); WBC, URINE AUTO 18 /HPF (0-3)
== END ==
LOC: M SMT 14:48
PROVIDERS: ATTEND Urology
DX: R31.0 Gross hematuria (principal)

== ENCOUNTER → 2019-01-15 | Outpatient (CLI) | payer MEDICARE ==
[2019-01-15 14:43] LABS: APPEARANCE, URINE CLEAR (CLEAR); BACTERIA, URINE AUTO NEGATIVE (NEGATIVE); BILIRUBIN, URINE AUTO NEGATIVE (NEGATIVE); BLOOD, URINE BLOOD NEGATIVE (NEGATIVE); COLOR, URINE YELLOW (YELLOW); GLUCOSE, URINE (UA) AUTO NEGATIVE (NEGATIVE); KETONE, URINE AUTO NEGATIVE (NEGATIVE); LEUKOCYTE ESTERASE, URINE AUTO NEGATIVE (NEGATIVE); NITRITE, URINE AUTO NEGATIVE (NEGATIVE); PROTEIN, URINE AUTO NEGATIVE (NEGATIVE); RBC, URINE AUTO 5 /HPF (0-3); SPECIFIC GRAVITY URINE AUTO 1.018 (1.002-1.035); SQUAMOUS EPITHELIAL CELL UR AU 0 /HPF (0-6); UROBILINOGEN, URINE AUTO 0.2 mg/dL (0.0-2.0); WBC, URINE AUTO 0 /HPF (0-3)
[2019-01-15 15:04] LABS: BLOOD UREA NITROGEN 15 MG/DL (7-18); CALCIUM LEVEL 9.8 MG/DL (8.8-10.2); CARBON DIOXIDE LEVEL 28 MEQ/L (21-32); CHLORIDE LEVEL 106 MEQ/L (98-107); CREATININE FOR GFR 0.84 MG/DL (0.70-1.30); GLOMERULAR FILTRATION RATE > 60.0 (>42); GLUCOSE, FASTING 109 MG/DL (70-100); POTASSIUM SERUM 3.6 MEQ/L (3.5-5.1); PREALBUMIN 32.5 MG/DL (20.0-40.0); SODIUM LEVEL 142 MEQ/L (136-145)
[2019-01-15 15:10] LABS: VITAMIN B12 LEVEL 338 PG/ML (247-911)
== END ==
LOC: M LAB 13:30
PROVIDERS: ATTEND Family Medicine
DX: E87.1 Hypo-osmolality and hyponatremia (principal); R63.4 Abnormal weight loss; R31.0 Gross hematuria; F10.10 Alcohol abuse, uncomplicated

== ENCOUNTER → 2019-02-21 | Outpatient (REF) | payer MEDICARE ==
[~2019-02-21] MED LIST changes: -OXYB10TA PO; +OXYB10TA2 PO
[2019-02-21 13:30] LABS: APPEARANCE, URINE CLEAR (CLEAR); BACTERIA, URINE AUTO NEGATIVE (NEGATIVE); BILIRUBIN, URINE AUTO NEGATIVE (NEGATIVE); BLOOD, URINE BLOOD 1+ (NEGATIVE); COLOR, URINE YELLOW (YELLOW); GLUCOSE, URINE (UA) AUTO NEGATIVE (NEGATIVE); KETONE, URINE AUTO NEGATIVE (NEGATIVE); LEUKOCYTE ESTERASE, URINE AUTO NEGATIVE (NEGATIVE); MUCUS, URINE SMALL (NEGATIVE); NITRITE, URINE AUTO NEGATIVE (NEGATIVE); PROTEIN, URINE AUTO NEGATIVE (NEGATIVE); RBC, URINE AUTO 1 /HPF (0-3); SQUAMOUS EPITHELIAL CELL UR AU 1 /HPF (0-6); UROBILINOGEN, URINE AUTO 0.2 mg/dL (0.0-2.0); WBC, URINE AUTO 1 /HPF (0-3)
== END ==
LOC: M SMT 13:14
PROVIDERS: ATTEND Nurse Practitioner Family
DX: R31.0 Gross hematuria (principal)
CPT/HCPCS: 81001; 87086; 88108; G0463

== ENCOUNTER → 2019-02-26 | Outpatient (CLI) | payer MEDICARE ==
[2019-02-26 15:41] LABS: BLOOD UREA NITROGEN 11 MG/DL (7-18); CALCIUM LEVEL 9.6 MG/DL (8.8-10.2); CARBON DIOXIDE LEVEL 26 MEQ/L (21-32); CHLORIDE LEVEL 104 MEQ/L (98-107); CREATININE FOR GFR 0.91 MG/DL (0.70-1.30); GLOMERULAR FILTRATION RATE > 60.0 (>42); GLUCOSE, FASTING 100 MG/DL (70-100); POTASSIUM SERUM 3.8 MEQ/L (3.5-5.1); SODIUM LEVEL 140 MEQ/L (136-145)
== END ==
LOC: M LAB 14:39
PROVIDERS: ATTEND Nurse Practitioner Family
DX: R31.0 Gross hematuria (principal)

== ENCOUNTER → 2019-02-27 | Outpatient (CLI) | payer MEDICARE ==
[~2019-02-27] MED LIST changes: +BACT400T PO; +BENA25CA4 PO; +BREO1INH INH; +CIDA500T2 PO; +DRIS50003 PO; +ECOT81TA5 PO; +INCR1INH IN; +ISOVUE-370 76% 100ML VIAL (Q9967) As Ordered ONE; -OXYB10TA2 PO; +OXYB10TA23 PO
--- NOTE | 2019-02-28 08:03 | REP ---
Clinical: Gross hematuria. Technique: Axial precontrast, contrast enhanced, and delayed images of the abdomen and pelvis using 100 ml Isovue 370 intravenous contrast material with coronal and sagittal re-formations as well as 3-D MIP urogram. Findings: The kidneys demonstrate moderate chronic-appearing perinephric stranding along with two simple subcentimeter right renal cysts as well as multiple simple left renal cysts measuring up to 3.3 cm diameter. Renovascular calcifications are identified without evidence for hydronephrosis, intrarenal, or obstructing ureteral calculi. Liver, spleen, pancreas, gallbladder, and bilateral adrenal glands are normal. The enteric system is without obstruction or acute inflammatory process. Normal terminal ileum and appendix are identified in the right lower quadrant. Scattered diverticula noted without acute diverticulitis. Pelvis demonstrates collapsed bladder and surgical clips suggesting prior prostatectomy as well as evidence of prior right hip fracture. No acute fracture dislocation. Abdominal aorta demonstrates atherosclerotic changes without aneurysm or dissection. No ascites. No free air. No adenopathy. Impression: 1. Evaluation of the urinary tract system demonstrates chronic renovascular calcifications, simple appearing cysts (left greater than right), and chronic perinephric stranding without hydronephrosis or nephroureterolithiasis. Electronically Signed by Pito Patino MD 02/28/2019 07:55 A
== END ==
LOC: M RAD 14:46
PROVIDERS: ATTEND Nurse Practitioner Family
DX: R31.0 Gross hematuria (principal)
CPT/HCPCS: 74178; Q9967

== ENCOUNTER → 2019-04-02 | Outpatient (CLI) | payer MEDICARE ==
[~2019-04-02] MED LIST changes: -ISOVUE-370 76% 100ML VIAL (Q9967) As Ordered ONE; +OXYB10TA2 PO; -OXYB10TA23 PO
== END ==
LOC: M LAB 13:15
PROVIDERS: ATTEND Radiology Radiation Oncology
DX: C61 Malignant neoplasm of prostate (principal)

== ENCOUNTER → 2019-04-03 | Outpatient (CLI) | payer MEDICARE ==
--- NOTE | 2019-04-04 10:11 | RADONC ---
RADIATION ONCOLOGY FOLLOWUP NOTE DATE: 04/03/2019 DIAGNOSIS: Prostate cancer. STAGE: Stage II A, [id number] status post robotic prostatectomy. ECOG performance status 1. Mr. Eid is a 73-year-old man with a diagnosis of prostate cancer, moderately to poorly differentiated, who underwent external beam following robotic prostatectomy. His PSA most recently was 0.20 down from 0.22. He has seen Dr. Pascal with some episodes of hematuria and according to the patient cystoscopy was performed, which showed some surgical clips extending into the bladder. These clips apparently were the source of the hematuria. REVIEW OF SYSTEMS: The patient denies any nausea, vomiting, diarrhea, dysuria or blood per rectum. He does have hematuria, as explained above. Otherwise, he continues to do quite well with no specific restrictions. EXAMINATION FINDINGS: The skin within the irradiated volume looks normal. There is no palpable peripheral lymphadenopathy. Lungs are clear. Heart regular. Abdomen without evidence of hepatomegaly, masses, deep abdominal tenderness. Extremities without cyanosis, clubbing or edema. The remainder of the physical examination is unchanged. IMPRESSION: Clinically JOSE. We would like the patient to return on a p.r.n. basis, and he was advised to continue seeing his referring physicians as per their directions and instructions. cc: MD Manjinder Nieto PA-C MTDD
== END ==
LOC: M ONCR 13:51
PROVIDERS: ATTEND Radiology Radiation Oncology
DX: Z85.46 Personal history of malignant neoplasm of prostate (principal); Z92.3 Personal history of irradiation

== ENCOUNTER → 2019-04-04 | Outpatient (REF) | payer MEDICARE | LOC: M SFHCPLAZ 18:08 | PROVIDERS: ATTEND Dermatology | DX: D22.72 Melanocytic nevi of left lower limb, including hip (principal) | CPT/HCPCS: 11102; 17000; 88305; G0463 ==

== ENCOUNTER → 2019-04-10 | Outpatient (CLI) | payer MEDICARE ==
[2019-04-10 13:52] LABS: HEMOGLOBIN 14.3 g/dl (13.5-17.5); MEAN CORPUSCULAR HEMOGLOBIN 32.6 pg (27.0-33.0); MEAN CORPUSCULAR HGB CONC 33.3 g/dl (32.0-36.5); MEAN CORPUSCULAR VOLUME 97.9 fl (80.0-96.0); PLATELET COUNT, AUTOMATED 273 10^3/uL (150-450); RED BLOOD COUNT 4.39 10^6/uL (4.30-6.10); WHITE BLOOD COUNT 8.2 10^3/uL (4.0-10.0)
== END ==
LOC: M LAB 13:15
PROVIDERS: ATTEND Urology
DX: Z01.818 Encounter for other preprocedural examination (principal); T19.1XXA Foreign body in bladder, initial encounter; Y92.89 Other specified places as the place of occurrence of the external cause

== ENCOUNTER → 2019-05-08 | Outpatient (REF) | payer MEDICARE | LOC: M SMT 11:32 | PROVIDERS: ATTEND Urology | DX: Z01.818 Encounter for other preprocedural examination (principal); T19.1XXA Foreign body in bladder, initial encounter; N39.0 Urinary tract infection, site not specified ==

== ENCOUNTER 2019-05-17 12:29 | Day surgery (SDC) | payer MEDICARE ==
[~2019-05-17] VITALS: Ht 175.3 cm; Wt 81.1 kg
[~2019-05-17 12:29] MED LIST changes: +LIDOCAINE 1% MDV 20ML VIAL SQ PRN; +LR 1,000 ML IV ONE; +ceFAZolin SOD 2 GM in IV 1 EA IV ONE
[2019-05-17] MEDS ORDERED: ONDANSETRON 4MG/2ML VIAL (J2405) As Ordered ONE ×2 (13:50→16:25)
[2019-05-17] MEDS ORDERED: PROPOFOL 200 MG/20 ML VIAL As Ordered ONE (13:50)
[2019-05-17] MEDS ORDERED: LIDOCAINE 2% INJ 100 MG/5 ML SDV (FOR ANES.) As Ordered ONE (13:50)
[2019-05-17] MEDS ORDERED: dexameTHASONE 4 MG/ML 1ML VIAL (J1100) As Ordered ONE (13:50)
[2019-05-17] MEDS ORDERED: fentaNYL 100 MCG/2 ML INJECTION (J3010) As Ordered ONE (14:55)
[2019-05-17] MEDS ORDERED: MIDAZOLAM INJ 2 MG/2 ML VIAL (J2250) As Ordered ONE (14:55)
[2019-05-17] MEDS ORDERED: PERCOCET 5MG/325MG TAB As Ordered ONE (16:25)
[2019-05-17] MEDS ORDERED: LR 1,000 ML IV SCH (16:45)
[2019-05-17] MEDS ORDERED: ACETAMINOPHEN TAB 650MG DOSE (2X325MG) PO PRN (16:45)
[2019-05-17] MEDS ORDERED: fentaNYL 100 MCG/2 ML INJECTION (J3010) IV PRN (16:45)
[2019-05-17] MEDS ORDERED: METOCLOPRAMIDE INJ 10MG/2ML VIAL (J2765) IV PRN (16:45)
[2019-05-17] MEDS ORDERED: PERCOCET 5MG/325MG TAB PO PRN (16:45)
[2019-05-17] MEDS ORDERED: ONDANSETRON 4MG/2ML VIAL (J2405) IV PRN (16:45)
[2019-05-17 18:36] VITALS: BP 146/68
--- NOTE | 2019-05-19 14:55 | RO ---
DATE OF PROCEDURE: 05/17/2019 PREPROCEDURE DIAGNOSIS: Bladder foreign bodies. POSTPROCEDURE DIAGNOSIS: Bladder foreign bodies. PROCEDURE: Cystoscopy, removal of bladder foreign bodies. SURGEON: Pollo Pascal MD TRIM SAWYER: None. ANESTHESIA: General. OPERATIVE INDICATIONS: This is a 73-year-old male with a history of prostate cancer who underwent a robotic radical prostatectomy several years ago. That was followed radiation therapy. He recently has been having gross hematuria and on office cystoscopy it was found to have a few of the Weck clips used during his robotic surgery had eroded through his vesicourethral anastomosis and into the bladder. He was brought to the operating room today to remove those clips. DESCRIPTION OF PROCEDURE: The patient was brought to the operating room and general anesthesia was induced. Prophylactic antibiotics were infused. He was then placed in the dorsal lithotomy position and prepped and draped in the usual sterile fashion. A rigid cystoscope was inserted into the urethral meatus and advanced into the bladder. Once inside the bladder, approximately four or five calcified clips were seen sitting embedded in the tissue of the bladder right at the bladder neck. All of these clips were then removed using a stent grasper. Once all of the clips were removed, they were washed out of the bladder. After that was done, I checked for hemostasis and there was a mild amount of bleeding inside the bladder, but nothing significant. I then removed the cystoscope and inserted an 18 Kiswahili Watts catheter into the bladder. The balloon was filled with 10 mL of sterile water and then the catheter was connected to gravity drainage. This marked the conclusion of the procedure. The patient was taken out of dorsal lithotomy position, awakened from anesthesia and transferred to the recovery room in stable condition. ESTIMATED BLOOD LOSS: 5 mL. COMPLICATIONS; None. SPECIMENS: Weck clips. PLAN: The patient will followup in the clinic in approximately one week for a postoperative visit and to have his catheter removed. STACI
== END 2019-05-17 18:39 | disposition home or self-care (01) ==
LOC: M SDC 12:29
PROVIDERS: ATTEND Urology
DX: R31.0 Gross hematuria (principal); T19.1XXA Foreign body in bladder, initial encounter; I10 Essential (primary) hypertension; E78.00 Pure hypercholesterolemia, unspecified; K57.32 Diverticulitis of large intestine without perforation or abscess without bleeding; F32.9 Major depressive disorder, single episode, unspecified; J44.9 Chronic obstructive pulmonary disease, unspecified; R06.83 Snoring; F12.90 Cannabis use, unspecified, uncomplicated; F17.210 Nicotine dependence, cigarettes, uncomplicated; Z88.1 Allergy status to other antibiotic agents; Z88.8 Allergy status to other drugs, medicaments and biological substances; Z79.899 Other long term (current) drug therapy; Y93.9 Activity, unspecified; Y92.9 Unspecified place or not applicable; Y99.9 Unspecified external cause status; Z85.46 Personal history of malignant neoplasm of prostate; Z92.3 Personal history of irradiation; Z96.641 Presence of right artificial hip joint
CPT/HCPCS: 52310; 88300; J0690; J1100; J2250; J2405; J3010

== ENCOUNTER 2019-09-17 10:58 | Emergency (ER) | payer MEDICARE ==
[~2019-09-17] VITALS: Ht 175.3 cm; Wt 81.0 kg
[~2019-09-17 10:58] MED LIST changes: -LIDOCAINE 1% MDV 20ML VIAL SQ PRN; -LR 1,000 ML IV ONE; -OXYB10TA2 PO; +OXYB10TA23 PO; -ceFAZolin SOD 2 GM in IV 1 EA IV ONE
[2019-09-17] MEDS ORDERED: [UNRECOGNIZED DRUG - OTHER] IM ONE (11:30)
[2019-09-17] MEDS ORDERED: TRET0.1C19 (11:53)
[2019-09-17 11:57] LABS: BASO # 0.1 10^3/uL (0.0-0.2); BASO % 1.1 % (0.0-1.0); EOS # 0.3 10^3/uL (0.0-0.5); EOS % 3.8 % (0.0-3.0); HEMATOCRIT 42.1 % (42.0-52.0); HEMOGLOBIN 14.3 g/dl (13.5-17.5); LYMPH # 2.1 10^3/uL (1.5-5.0); LYMPH % 29.1 % (24.0-44.0); MEAN CORPUSCULAR HEMOGLOBIN 32.4 pg (27.0-33.0); MEAN CORPUSCULAR VOLUME 95.2 fl (80.0-96.0); MONO # 0.7 10^3/uL (0.0-0.8); MONO % 9.2 % (0.0-5.0); NEUTROPHILS % 56.4 % (36.0-66.0); PLATELET COUNT, AUTOMATED 264 10^3/uL (150-450); RED BLOOD COUNT 4.42 10^6/uL (4.30-6.10); WHITE BLOOD COUNT 7.1 10^3/uL (4.0-10.0)
[2019-09-17 12:13] LABS: BLOOD UREA NITROGEN 11 MG/DL (7-18); CALCIUM LEVEL 9.3 MG/DL (8.8-10.2); CARBON DIOXIDE LEVEL 30 MEQ/L (21-32); CHLORIDE LEVEL 106 MEQ/L (98-107); CREATININE FOR GFR 0.96 MG/DL (0.70-1.30); ETHYL ALCOHOL (ETHANOL) 0.294 % (0.000-0.010); GLOMERULAR FILTRATION RATE > 60.0 (>42); GLUCOSE, FASTING 94 MG/DL (70-100); POTASSIUM SERUM 3.5 MEQ/L (3.5-5.1); SODIUM LEVEL 141 MEQ/L (136-145)
--- NOTE | 2019-09-17 12:47 | REP ---
CT BRAIN WITHOUT CONTRAST: CT brain performed without IV contrast. There is mild atrophy. There is mildly chronic periventricular small vessel ischemic change. There is a small lacunar infarct on the left basal ganglia region. There is no acute intracranial hemorrhage. There is no extra-axial fluid collection. There is no midline shift or mass effect. No skull fracture is seen. There are vascular calcifications in the carotid siphons. There are nodular densities in the nasal passages compatible with multiple polyps. Retention cyst or polyp is also seen in each maxillary sinus. IMPRESSION: No evidence of acute intracranial hemorrhage or skull fracture. Old periventricular ischemic changes. Nasal polyps. Electronically Signed by Reji Zamora MD 09/17/2019 03:10 P
--- NOTE | 2019-09-17 12:51 | REP ---
MAXILLOFACIAL CT STUDY WITHOUT CONTRAST: HISTORY: Injury in a fall. Trauma to the frontal region. Comparison study is from March 12, 2013. CT FINDINGS: There is preseptal right periorbital soft tissue swelling. There is no evidence of intraconal or extraconal orbital hematoma. There is some generalized atrophy visible intracranially. There is polysinusitis with partial opacification of the ethmoid, frontal and maxillary sinuses. There is mild mucosal thickening in the sphenoid sinuses. Mastoid aeration appears normal and symmetric. Polypoid sinus disease is noted similar to the findings on the CT study from March 12, 2013 with multiple nasal polyps and bilateral maxillary sinus polyps. No additional bony destructive change. There is extensive vascular calcification. Orbital margins are intact. Zygomatic arches are intact. No mandibular fracture is appreciated. IMPRESSION: Right pre-septal periorbital soft tissue swelling. No orbital or maxillary or mandibular fracture is seen. Vascular calcification. Preexisting paranasal sinus polypoid disease and nasal polypoid disease essentially unchanged from March 2013. Electronically Signed by Andres Ramsay MD 09/17/2019 02:51 P
[2019-09-17 13:10] VITALS: BP 138/82
--- NOTE | 2019-09-17 14:01 | REP ---
CT STUDY OF THE CERVICAL SPINE WITHOUT CONTRAST: HISTORY: Trauma. TECHNIQUE: Helical scanning is acquired and overlapping 2 mm high resolution axial images were generated and reviewed at bone and soft tissue window settings. Coronal and sagittal multiplanar re-formations images are generated. CT FINDINGS: There is no evidence of cervical spine element fracture. No skull base fracture is seen. Cervical vertebral body heights are preserved. Alignment is normal. Facet joints are normally aligned bilaterally at each cervical level on multiplanar re-formations images. There is no evidence of intraspinal or paraspinal hematoma. No extra vertebral abnormality is seen. There is a levoconvex curve in the cervical spine on coronal multiplanar re-formation images. The patient is rotated somewhat in the scanner. Vascular calcification is noted. There are degenerative disc changes most pronounced at C5-6 and C6-7 with mild bilateral uncovertebral spurring at these levels. There is also degenerative change at the articulation between the dens and the anterior arch of C1. IMPRESSION: Degenerative spondylosis changes. Levoconvex curvature. Vascular calcification. Otherwise negative CT study of the cervical spine without contrast. No fracture seen. Electronically Signed by Andres Ramsay MD 09/17/2019 02:52 P
== END 2019-09-17 13:19 | disposition home or self-care (01) ==
LOC: M ED 10:58
DX: F10.10 Alcohol abuse, uncomplicated (principal); Y90.1 Blood alcohol level of 20-39 mg/100 ml; S00.11XA Contusion of right eyelid and periocular area, initial encounter; S00.31XA Abrasion of nose, initial encounter; S60.512A Abrasion of left hand, initial encounter; W01.0XXA Fall on same level from slipping, tripping and stumbling without subsequent striking against object, initial encounter; Y92.018 Other place in single-family (private) house as the place of occurrence of the external cause; J44.9 Chronic obstructive pulmonary disease, unspecified; I10 Essential (primary) hypertension; E78.00 Pure hypercholesterolemia, unspecified; K21.9 Gastro-esophageal reflux disease without esophagitis; F33.9 Major depressive disorder, recurrent, unspecified; Z79.899 Other long term (current) drug therapy; Z79.82 Long term (current) use of aspirin; Z88.1 Allergy status to other antibiotic agents; Z88.8 Allergy status to other drugs, medicaments and biological substances
CPT/HCPCS: 70450; 70486; 72125; 80048; 85025; 86850; 86900; 86901; 90471; 90715; 99283; G0480

== ENCOUNTER → 2019-09-20 | Outpatient (CLI) | payer MEDICARE ==
[~2019-09-20] MED LIST changes: +TRET0.1C19
[2019-09-20 15:53] LABS: HEMATOCRIT 42.5 % (42.0-52.0); HEMOGLOBIN 14.9 g/dl (13.5-17.5); MEAN CORPUSCULAR HEMOGLOBIN 33.6 pg (27.0-33.0); MEAN CORPUSCULAR HGB CONC 35.1 g/dl (32.0-36.5); MEAN CORPUSCULAR VOLUME 95.7 fl (80.0-96.0); PLATELET COUNT, AUTOMATED 218 10^3/uL (150-450); RED BLOOD COUNT 4.44 10^6/uL (4.30-6.10); WHITE BLOOD COUNT 10.2 10^3/uL (4.0-10.0)
[2019-09-20 16:26] LABS: ALBUMIN 3.9 GM/DL (3.2-5.2); ALT/SGPT 44 U/L (12-78); BLOOD UREA NITROGEN 14 MG/DL (7-18); CALCIUM LEVEL 9.4 MG/DL (8.8-10.2); CARBON DIOXIDE LEVEL 28 MEQ/L (21-32); CHLORIDE LEVEL 102 MEQ/L (98-107); CHOLESTEROL LEVEL 194 MG/DL (<200); CREATININE FOR GFR 1.17 MG/DL (0.70-1.30); GLOMERULAR FILTRATION RATE > 60.0 (>42); GLUCOSE, FASTING 132 MG/DL (70-100); HDL CHOLESTEROL 101 MG/DL (>40); LDL CHOLESTEROL 45 MG/DL (<100); NON-HDL-C 93 MG/DL; POTASSIUM SERUM 3.4 MEQ/L (3.5-5.1); SODIUM LEVEL 139 MEQ/L (136-145); TOTAL PROTEIN 7.2 GM/DL (6.4-8.2); TRIGLYCERIDES LEVEL 241 MG/DL (<150)
== END ==
LOC: M LAB 14:31
PROVIDERS: ATTEND Family Medicine
DX: Z13.220 Encounter for screening for lipoid disorders (principal); Z13.1 Encounter for screening for diabetes mellitus; F10.10 Alcohol abuse, uncomplicated; I10 Essential (primary) hypertension; K92.1 Melena

== ENCOUNTER → 2019-09-20 | Outpatient (CLI) | payer MEDICARE | LOC: M LAB 14:35 | PROVIDERS: ATTEND Urology | DX: C61 Malignant neoplasm of prostate (principal); F10.10 Alcohol abuse, uncomplicated; Z13.220 Encounter for screening for lipoid disorders; Z13.1 Encounter for screening for diabetes mellitus; I10 Essential (primary) hypertension; K92.1 Melena ==

== ENCOUNTER → 2019-10-24 | Outpatient (CLI) | payer MEDICARE ==
[2019-10-24 16:47] LABS: BLOOD UREA NITROGEN 16 MG/DL (7-18); CALCIUM LEVEL 9.3 MG/DL (8.8-10.2); CARBON DIOXIDE LEVEL 29 MEQ/L (21-32); CHLORIDE LEVEL 103 MEQ/L (98-107); CREATININE FOR GFR 0.92 MG/DL (0.70-1.30); GLOMERULAR FILTRATION RATE > 60.0 (>42); GLUCOSE, FASTING 88 MG/DL (70-100); POTASSIUM SERUM 3.7 MEQ/L (3.5-5.1); SODIUM LEVEL 139 MEQ/L (136-145)
== END ==
LOC: M LAB 15:39
PROVIDERS: ATTEND Family Medicine
DX: E87.6 Hypokalemia (principal)

== ENCOUNTER → 2019-12-02 | Outpatient (CLI) | payer MEDICARE | LOC: M PLALAB 14:19 | PROVIDERS: ATTEND Urology | DX: C61 Malignant neoplasm of prostate (principal); Z79.51 Long term (current) use of inhaled steroids; Z79.82 Long term (current) use of aspirin; Z79.899 Other long term (current) drug therapy ==

== ENCOUNTER → 2019-12-30 | Outpatient (REF) | payer MEDICARE ==
[~2019-12-30] MED LIST changes: +AMLO1TAB24 PO; -AMLO5TAB6 PO; -ASPI81TA85 PO; +ASPI81TA86 PO; +FURO20TA2; +KLOR10TA76; +LIDO5DIS41 TOP
== END ==
LOC: M SFHCPLAZ 11:05
PROVIDERS: ATTEND Family Medicine
DX: Z11.4 Encounter for screening for human immunodeficiency virus [HIV] (principal)
CPT/HCPCS: 36415; 87389; G0463

== ENCOUNTER → 2020-01-31 | Outpatient (CLI) | payer MEDICARE ==
[2020-01-31 15:39] LABS: ALBUMIN 3.6 GM/DL (3.2-5.2); ALT/SGPT 40 U/L (12-78); BILIRUBIN,TOTAL 0.5 MG/DL (0.2-1.0); BLOOD UREA NITROGEN 14 MG/DL (7-18); CALCIUM LEVEL 9.7 MG/DL (8.8-10.2); CARBON DIOXIDE LEVEL 31 MEQ/L (21-32); CHLORIDE LEVEL 104 MEQ/L (98-107); CREATININE FOR GFR 1.01 MG/DL (0.70-1.30); GLOMERULAR FILTRATION RATE > 60.0 (>42); GLUCOSE, FASTING 87 MG/DL (70-100); NT-PRO BNP 36 PG/ML (<125); POTASSIUM SERUM 4.2 MEQ/L (3.5-5.1); SODIUM LEVEL 137 MEQ/L (136-145); TOTAL PROTEIN 6.7 GM/DL (6.4-8.2)
== END ==
LOC: M PLALAB 10:33
PROVIDERS: ATTEND Family Medicine
DX: R60.0 Localized edema (principal); E03.0 Congenital hypothyroidism with diffuse goiter

== ENCOUNTER 2020-02-03 08:18 | Emergency (ER) | payer MEDICARE ==
[~2020-02-03] VITALS: Ht 175.3 cm; Wt 79.7 kg
[~2020-02-03 08:18] MED LIST changes: -FURO20TA2; -KLOR10TA76; -LIDO5DIS41 TOP
[2020-02-03] MEDS ORDERED: KLOR10TA76 (08:29)
[2020-02-03] MEDS ORDERED: FURO20TA2 (08:29)
[2020-02-03] MEDS ORDERED: LIDOCAINE 5% (LIDODERM) PATCH TD ONE (09:30)
--- NOTE | 2020-02-03 09:39 | REPVR ---
PROCEDURE INFORMATION: Exam: CT Lumbar Spine Without Contrast Exam date and time: 02/03/2020 9:19 AM Age: 74 years old Clinical indication: Low back pain; Additional info: Low back pain, h/o prostate CA TECHNIQUE: Imaging protocol: Computed tomography images of the lumbar spine without contrast. Radiation optimization: All CT scans at this facility use at least one of these dose optimization techniques: automated exposure control; mA and/or kV adjustment per patient size (includes targeted exams where dose is matched to clinical indication); or iterative reconstruction. COMPARISON: No relevant prior studies available. FINDINGS: Vertebrae: Mild levoscoliosis of the lumbar spine. Discs/Spinal canal/Neural foramina: Degenerative disease and facet hypertrophy. Stenosis of the spinal canal at L2-L3 and L3-L4. Sacrum/coccyx: Mild degenerative changes bilateral sacroiliac joints. Kidneys and ureters: Nonspecific bilateral perinephric fat stranding. Vasculature: Atherosclerotic disease. Soft tissues: Unremarkable. IMPRESSION: No acute fractures. Degenerative disease and facet hypertrophy. Stenosis of the spinal canal at L2-L3 and L3-L4. Electronically signed by: Clive Anaya On 02/03/2020 09:40:02 AM
[2020-02-03 11:24] LABS: BASO # 0.1 10^3/uL (0.0-0.2); BASO % 1.2 % (0.0-1.0); EOS # 0.2 10^3/uL (0.0-0.5); EOS % 2.4 % (0.0-3.0); HEMATOCRIT 46.5 % (42.0-52.0); HEMOGLOBIN 15.5 g/dl (13.5-17.5); LYMPH # 1.5 10^3/uL (1.5-5.0); LYMPH % 16.4 % (24.0-44.0); MEAN CORPUSCULAR HEMOGLOBIN 32.8 pg (27.0-33.0); MEAN CORPUSCULAR HGB CONC 33.3 g/dl (32.0-36.5); MEAN CORPUSCULAR VOLUME 98.5 fl (80.0-96.0); MONO # 0.7 10^3/uL (0.0-0.8); MONO % 7.5 % (0.0-5.0); NEUTROPHILS # 6.6 10^3/uL (1.5-8.5); PLATELET COUNT, AUTOMATED 319 10^3/uL (150-450); RED BLOOD COUNT 4.72 10^6/uL (4.30-6.10); WHITE BLOOD COUNT 9.2 10^3/uL (4.0-10.0)
[2020-02-03 11:55] LABS: BLOOD UREA NITROGEN 15 MG/DL (7-18); CALCIUM LEVEL 9.7 MG/DL (8.8-10.2); CARBON DIOXIDE LEVEL 27 MEQ/L (21-32); CHLORIDE LEVEL 102 MEQ/L (98-107); CREATININE FOR GFR 1.05 MG/DL (0.70-1.30); GLOMERULAR FILTRATION RATE > 60.0 (>42); GLUCOSE, FASTING 78 MG/DL (70-100); POTASSIUM SERUM 3.8 MEQ/L (3.5-5.1); SODIUM LEVEL 140 MEQ/L (136-145)
[2020-02-03] MEDS ORDERED: LIDO5DIS41 TOP (12:27)
[2020-02-03 12:46] VITALS: BP 142/65
[2020-02-03] MEDS ORDERED: **NOTE PATIENT COMMENT** MISC XX SCH (21:00)
== END 2020-02-03 12:47 | disposition home or self-care (01) ==
LOC: M ED 08:18
DX: M48.07 Spinal stenosis, lumbosacral region (principal); I10 Essential (primary) hypertension; E78.5 Hyperlipidemia, unspecified; F33.9 Major depressive disorder, recurrent, unspecified; K21.9 Gastro-esophageal reflux disease without esophagitis; Z79.899 Other long term (current) drug therapy; Z88.1 Allergy status to other antibiotic agents; Z88.8 Allergy status to other drugs, medicaments and biological substances; F12.20 Cannabis dependence, uncomplicated; F17.210 Nicotine dependence, cigarettes, uncomplicated

== ENCOUNTER → 2020-03-09 | Outpatient (CLI) | payer MEDICARE ==
[~2020-03-09] MED LIST changes: +FURO20TA2; +KLOR10TA76; +LIDO5DIS41 TOP
== END ==
LOC: M PLALAB 15:24
PROVIDERS: ATTEND Urology
DX: C61 Malignant neoplasm of prostate (principal)

== ENCOUNTER → 2020-04-24 | Outpatient (REF) | payer MEDICARE | LOC: M PLALAB 14:38 | PROVIDERS: ATTEND Urology | DX: C61 Malignant neoplasm of prostate (principal) ==

== ENCOUNTER 2020-05-15 16:12 | Emergency (ER) | payer MEDICARE ==
[~2020-05-15] VITALS: Ht 175.3 cm; Wt 80.9 kg
--- NOTE | 2020-05-15 16:54 | REP ---
INDICATION: pain and swelling after fall. COMPARISON: None. TECHNIQUE: Five views. FINDINGS: Five views of the right ankle demonstrate an obliquely oriented fracture through the distal fibular metaphysis at the level of the ankle mortise. Ankle mortise is intact. No displacement is seen. No tibial fracture is seen. There is some diffuse osteopenia. In addition, the silhouette of the Achilles tendon is abnormal with swelling and irregularity. There is edema in the pre Achilles fat. This should be correlated clinically. I cannot exclude acute Achilles injury versus chronic Achilles tendinitis tendinosis change. IMPRESSION: 1. Nondisplaced obliquely oriented fracture through the distal fibula. 2. Diffuse osteoporosis. 3. Abnormal Achilles tendon with pre Achilles fat edema or infiltration. Rule out Achilles rupture versus advanced Achilles tendinopathy. <Electronically signed by Jaxson Ramsay > 05/15/20 [id number]
[2020-05-15 18:41] VITALS: BP 179/78
== END 2020-05-15 18:52 | disposition home or self-care (01) ==
LOC: M ED 16:12
DX: S82.431A Displaced oblique fracture of shaft of right fibula, initial encounter for closed fracture (principal); W00.0XXA Fall on same level due to ice and snow, initial encounter; Y92.018 Other place in single-family (private) house as the place of occurrence of the external cause; I10 Essential (primary) hypertension; J44.9 Chronic obstructive pulmonary disease, unspecified; Z79.899 Other long term (current) drug therapy; Z88.1 Allergy status to other antibiotic agents; Z88.8 Allergy status to other drugs, medicaments and biological substances

== ENCOUNTER → 2020-06-22 | Outpatient (REF) | payer MEDICARE | LOC: M LABSMT 11:14 | PROVIDERS: ATTEND Urology | DX: C61 Malignant neoplasm of prostate (principal) | CPT/HCPCS: 84153; G0463 ==

== ENCOUNTER → 2020-07-06 | Outpatient (CLI) | payer MEDICARE ==
--- NOTE | 2020-07-07 10:57 | REP ---
INDICATION: ENCNTR SCREEN FOR MALIGNANT NEOPLASM OF RESPIRATORY ORGANS COMPARISON: 07/04/2018 TECHNIQUE: Axial noncontrast images from the thoracic inlet to the upper abdomen using low-dose lung screening technique (LDCT). FINDINGS: The bilateral lung fish are well aerated and again demonstrate few scattered chronic appearing changes including non solid ground-glass density in the basilar right upper lobe and small adjacent nodule and triangular scarring along the minor fissure and right middle lobe. No acute consolidation, significant nodule, or mass. Tracheobronchial tree is patent. No effusion. No pneumothorax. Atherosclerotic changes to the thoracic aorta and coronary arteries again noted. Musculoskeletal structures are intact. IMPRESSION: 1. Lung-RADS category 1. Stable chronic scarring again noted. 2. Management recommendations include annual low-dose CT surveillance. <Electronically signed by Pito Patino > 07/07/20 105
== END ==
LOC: M RAD 13:53
PROVIDERS: ATTEND Family Medicine
DX: Z12.2 Encounter for screening for malignant neoplasm of respiratory organs (principal)

== ENCOUNTER → 2020-09-23 | Outpatient (CLI) | payer MEDICARE ==
--- NOTE | 2020-09-23 14:27 | REP ---
INDICATION: N63.0 RT BREAST LUMP. COMPARISON: None. TECHNIQUE: Targeted right breast sonography is performed in the retroareolar region where the patient describes a palpable lump. Comparison retroareolar sonography is performed on the left. FINDINGS: Imaging at the site of the palpable lump demonstrates a retroareolar area of hypoechoic breast tissue suggestive of gynecomastia. Comparison scanning of the left retroareolar region shows no significant hypoechoic retroareolar rib tissue. No other sonographic finding is seen in the right breast. IMPRESSION: BI-RADS category 0 incomplete. Probable gynecomastia unilateral right breast. Consider mammography for further evaluation. <Electronically signed by Jaxson Ramsay > 09/23/20 [id number]
== END ==
LOC: M WHC 13:07
PROVIDERS: ATTEND Family Medicine
DX: N63.0 Unspecified lump in unspecified breast (principal)

== ENCOUNTER → 2020-10-04 | Outpatient (CLI) | payer MEDICARE ==
[~2020-10-04] MED LIST changes: +ASPI81TA26 PO
== END ==
LOC: M LABSMTC 09:32
PROVIDERS: ATTEND Anesthesiology
DX: Z01.812 Encounter for preprocedural laboratory examination (principal); Z11.52 Encounter for screening for COVID-19

== ENCOUNTER 2020-10-09 11:04 | Day surgery (SDC) | payer MEDICARE ==
[~2020-10-09] VITALS: Ht 172.7 cm; Wt 80.3 kg
[~2020-10-09 11:04] MED LIST changes: +NS 1,000 ML IV ONE
[2020-10-09] MEDS ORDERED: propofoL 200 MG/20 ML VIAL As Ordered ONE ×3 (11:58→12:04)
[2020-10-09] MEDS ORDERED: LIDOCAINE 2% 100MG/5ML SDV (FOR ANES.) As Ordered ONE (11:58)
--- NOTE | 2020-10-09 12:22 | ROOR ---
Patient Name: Ravi Eid Procedure Date: 10/09/2020 11:46 AM Date of : 1945 Age: 74 Room: [facility] Gender: Male Note Status: Finalized Procedure: Colonoscopy Indications: Last colonoscopy: July 2018, Therapeutic procedure for known colon adenoma Providers: Brandon SKINNER MD Referring MD: TEMO VELARDE MD Requesting Provider: Medicines: Monitored Anesthesia Care Complications: No immediate complications. Procedure: Pre-Anesthesia Assessment: - The heart rate, respiratory rate, oxygen saturations, blood pressure, adequacy of pulmonary ventilation, and response to care were monitored throughout the procedure. The Colonoscope was introduced through the anus and advanced to the terminal ileum, with identification of the appendiceal orifice and IC valve. The colonoscopy was performed without difficulty. The patient tolerated the procedure well. The quality of the bowel preparation was good. Findings: The perianal and digital rectal examinations were normal. A tattoo was seen in the proximal ascending colon. A post-polypectomy scar was found at the tattoo site. There was no evidence of residual polyp tissue. A 5 mm polyp was found in the splenic flexure. The polyp was sessile. The polyp was removed with a cold snare. Resection and retrieval were complete. A 5 mm polyp was found in the sigmoid colon. The polyp was sessile. The polyp was removed with a cold snare. Resection and retrieval were complete. Mild sigmoid diverticulosis and moderate internal hemorrhoids. The exam was otherwise without abnormality on direct and retroflexion views. Impression: - A tattoo was seen in the proximal ascending colon. A post-polypectomy scar was found at the tattoo site. There was no evidence of residual polyp tissue. - One 5 mm polyp at the splenic flexure, removed with a cold snare. Resected and retrieved. - One 5 mm polyp in the sigmoid colon, removed with a cold snare. Resected and retrieved. - Mild sigmoid diverticulosis and moderate internal hemorrhoids. - The examination was otherwise normal on direct and retroflexion views. Recommendation: - Repeat colonoscopy in 5 years for surveillance. Procedure Code(s): --- Professional --- 74300, Colonoscopy, flexible; with removal of tumor(s), polyp(s), or other lesion(s) by snare technique Diagnosis Code(s): --- Professional --- D12.6, Benign neoplasm of colon, unspecified K63.5, Polyp of colon CPT copyright 2019 [employer]. All rights reserved. The codes documented in this report are preliminary and upon fusing line inspector review may be revised to meet current compliance requirements. Brandon Skinner MD Brandon SKINNER MD 10/09/2020 12:21:50 PM Electronically signed by Brandon SKINNER MD Number of Addenda: 0 Note Initiated On: 10/09/2020 11:46 AM Estimated Blood Loss: Estimated blood loss: none.
[2020-10-09 12:39] VITALS: BP 152/77
== END 2020-10-09 12:40 | disposition home or self-care (01) ==
LOC: M OPP 11:04
PROVIDERS: ATTEND Internal Medicine Gastroenterology
DX: D12.6 Benign neoplasm of colon, unspecified (principal); K57.30 Diverticulosis of large intestine without perforation or abscess without bleeding; K64.8 Other hemorrhoids; F17.210 Nicotine dependence, cigarettes, uncomplicated; Z79.899 Other long term (current) drug therapy; Z88.1 Allergy status to other antibiotic agents; Z88.8 Allergy status to other drugs, medicaments and biological substances

== ENCOUNTER → 2020-10-16 | Outpatient (CLI) | payer MEDICARE ==
[~2020-10-16] MED LIST changes: -NS 1,000 ML IV ONE
--- NOTE | 2020-10-16 12:02 | REP ---
INDICATION: ARMEN DIAG MAMMO/R63.0 BREAST LUMP - RIGHT. The patient reports that the lump is regressing since the time the breast ultrasound. COMPARISON: Comparison sonography of the right and left breast is from 23 September 2020. TECHNIQUE: Cc and MLO views of each breast were augmented by magnified focal spot-compression images of the right breast. A skin marker is a fix the skin at the site of the palpable abnormality. FINDINGS: There is a small amount of fibroglandular tissue the DC nipple on the MLO projection image of the right breast. No discernible mass lesion is seen. This is not well displayed on the CC projection image. There is a small normal size right axillary lymph node visible. No abnormality noted on the left.. IMPRESSION: BIRADS/ACR category 2 benign findings. Findings consistent with mild unilateral right-sided gynecomastia. This mammogram was interpreted with the aid of an FDA-approved computer-aided detection system. The patient states he had a clinical breast exam in September 23, 2020.. The patient letter being requested is male patient letter M2. RECOMMENDATION: Clinical follow-up is advised. <Electronically signed by Jaxson Ramsay > 10/16/20 [id number]
== END ==
LOC: M WHC 08:45
PROVIDERS: ATTEND Family Medicine
DX: N62 Hypertrophy of breast (principal)
CPT/HCPCS: 77066; G0279

== ENCOUNTER → 2020-11-06 | Outpatient (REF) | payer MEDICARE ==
[2020-11-06 13:37] LABS: CHOLESTEROL RISK RATIO 2.476 (<5)
[2020-11-06 13:49] LABS: HEMOGLOBIN A1c 5.4 %
== END ==
LOC: M SFHCPLAZ 10:26
PROVIDERS: ATTEND Family Medicine
DX: Z13.1 Encounter for screening for diabetes mellitus (principal); Z13.220 Encounter for screening for lipoid disorders; Z79.899 Other long term (current) drug therapy
CPT/HCPCS: 36415; 80061; 83036; G0463

== ENCOUNTER → 2020-11-18 | Outpatient (REF) | payer MEDICARE | LOC: M LAB REF 18:55 | PROVIDERS: ATTEND Physician Assistant | DX: D22.39 Melanocytic nevi of other parts of face (principal) | CPT/HCPCS: 11102; 17110; 88305; G0463 ==

== ENCOUNTER → 2020-11-30 | Outpatient (CLI) | payer MEDICARE | LOC: M LAB 15:19 | PROVIDERS: ATTEND Urology | DX: C61 Malignant neoplasm of prostate (principal) ==

== ENCOUNTER → 2021-01-07 | Outpatient (CLI) | payer MEDICARE ==
--- NOTE | 2021-01-07 11:32 | REP ---
INDICATION: PAIN IN RIGHT SHOULDER. COMPARISON: Right shoulder 12/28/2012 TECHNIQUE: Three views of each shoulder FINDINGS: Right shoulder: AC joint shows some mild narrowing and inferior spurring. Glenohumeral joint also shows some inferior spurring with no subluxation or dislocation of the glenohumeral joint there is no visible fracture or abnormal soft tissue calcification. The ribs grossly intact. Left shoulder: AC joint shows some narrowing. I do not see significant spur formation. There are degenerative changes with small spurring at the inferior margin of the glenohumeral joint there is a prominent Hill-Sachs deformity suggested, likely from prior dislocation. No abnormal soft tissue calcification. No acute fracture or destructive lesion. Visualized ribs intact. IMPRESSION: 1. Right shoulder with AC and glenohumeral joint degenerative changes without acute fracture, subluxation, abnormal soft tissue calcification or focal bone lesion. 2. Left shoulder with AC and glenohumeral joint degenerative changes without acute fracture, subluxation, abnormal soft tissue calcification but with irregular cortical defect laterally consistent with a prominent Hill-Sachs deformity. No acute bony finding . <Electronically signed by Neel Skinner > 01/07/21 [id number]
== END ==
LOC: M PLAIMG 10:24
PROVIDERS: ATTEND Family Medicine
DX: Z13.820 Encounter for screening for osteoporosis (principal); M25.511 Pain in right shoulder

== ENCOUNTER → 2021-01-19 | Outpatient (CLI) | payer MEDICARE ==
--- NOTE | 2021-01-19 14:31 | DEXAMM ---
INDICATION: Z13.820 OSTEOPOROSIS. COMPARISON: None. TECHNIQUE: Bone density was measured using dual-energy x-ray absorptionmetry (DEXA). FINDINGS: AP SPINE L1-L4 BMD 1.243 g/cm2 Young Adult T-Score 0.4 Age Matched Z-Score 0.6. LT FEMUR, TOTAL BMD 0.781 g/cm2 Young Adult T-Score -1.8 Age Matched Z-Score -1.4. IMPRESSION: There is normal of the spine. There is low bone density of the left hip. There is low bone density of the right hip. FOLLOW-UP: Recommendation for the next bone density exam: 2 years. <Electronically signed by Saul Eisenberg > 01/19/21 [id number]
== END ==
LOC: M WHC 10:30
PROVIDERS: ATTEND Family Medicine
DX: Z13.820 Encounter for screening for osteoporosis (principal); M85.851 Other specified disorders of bone density and structure, right thigh; M85.852 Other specified disorders of bone density and structure, left thigh

== ENCOUNTER → 2021-03-19 | Outpatient (CLI) | payer MEDICARE ==
[~2021-03-19] MED LIST changes: -KLOR10TA76; +POTA-136
--- NOTE | 2021-03-19 16:42 | REP ---
INDICATION: ACUTE UPPER RESPIRATORY INFECTION, UNSPECIFIED. COMPARISON: Comparison chest x-ray August 27, 2018. TECHNIQUE: Three views.. FINDINGS: The lungs are well inflated and free of infiltrate. The pleural angles are sharp. The heart size is normal. Pulmonary vasculature is not increased. No significant bony abnormality is seen. IMPRESSION: No active disease. <Electronically signed by Jaxson Ramsay > 03/19/21 [id number]
== END ==
LOC: M PLAIMG 15:50
PROVIDERS: ATTEND Family Medicine
DX: J06.9 Acute upper respiratory infection, unspecified (principal)

== ENCOUNTER 2021-05-27 12:26 | Emergency (ER) | payer MEDICARE ==
[~2021-05-27] VITALS: Ht 172.7 cm; Wt 82.1 kg
[2021-05-27] MEDS ORDERED: OXYMETAZOLINE 0.05% NASAL SPRAY (AFRIN) ONE (14:20)
[2021-05-27] MEDS ORDERED: guaiFENesin ER 600 MG TAB PO ONE (14:20)
--- NOTE | 2021-05-27 14:43 | REP ---
INDICATION: cough, lungs coarse COMPARISON: 03/19/2021 TECHNIQUE: PA and lateral. FINDINGS: The mediastinum and cardiac silhouette are normal. The lung fish demonstrate chronic appearing changes although subtle diffuse bronchitis cannot be excluded. No focal consolidation. No effusion. No pneumothorax. The skeletal structures are intact and normal. IMPRESSION: Presumed chronic interstitial changes. Bronchitis cannot be excluded. No focal consolidation or effusion. <Electronically signed by Pito Patino > 05/27/21 [id number]
[2021-05-27 15:35] LABS: RSV AMPLIFICATION NEGATIVE (NEGATIVE)
[2021-05-27 17:48] VITALS: BP 157/78
== END 2021-05-27 17:51 | disposition home or self-care (01) ==
LOC: M ED 12:26
DX: R09.81 Nasal congestion (principal); U07.1 COVID-19; J44.9 Chronic obstructive pulmonary disease, unspecified; Z79.899 Other long term (current) drug therapy; Z79.82 Long term (current) use of aspirin; Z88.1 Allergy status to other antibiotic agents; Z88.8 Allergy status to other drugs, medicaments and biological substances; F17.210 Nicotine dependence, cigarettes, uncomplicated; F12.20 Cannabis dependence, uncomplicated

== ENCOUNTER 2021-05-28 11:11 | Outpatient (CLI) | payer MEDICARE ==
[~2021-05-28] VITALS: Ht 172.7 cm; Wt 78.5 kg
[~2021-05-28 11:11] MED LIST changes: +ALBUTEROL 90 MCG/ACT 8GM HFA INHALER INH PRN; +ALBUTEROL SULFATE 2.5 MG/0.5 ML INH NEB SOLN INH PRN; +BAMLANIVIMAB 700 MG, ETESEVIMAB 1,400 MG in NS 250 ML IV ONE; +CASIRIVIMAB/IMDEVIMAB 1,200 MG in NS 250 ML IV ONE; +EPINEPHrine INJ 1 MG/ML 1ML AMP IM PRN; +NS 1,000 ML IV SCH; +diphenhydrAMINE 50MG/ML VIAL (J1200) IV PRN; +methylPREDNISolone 125MG 2ML VIAL IV PRN
[2021-05-28 11:58] VITALS: BP 140/63
[2021-05-28 12:28] VITALS: BP 147/78
[2021-05-28 12:58] VITALS: BP 150/72
[2021-05-28 13:58] VITALS: BP 144/66
== END 2021-05-28 13:58 | disposition home or self-care (01) ==
LOC: M OPCLI4 11:11
PROVIDERS: ATTEND Internal Medicine
DX: U07.1 COVID-19 (principal); Z88.1 Allergy status to other antibiotic agents; Z88.8 Allergy status to other drugs, medicaments and biological substances

== ENCOUNTER → 2021-06-10 | Outpatient (CLI) | payer MEDICARE ==
[~2021-06-10] MED LIST changes: -ALBUTEROL 90 MCG/ACT 8GM HFA INHALER INH PRN; -ALBUTEROL SULFATE 2.5 MG/0.5 ML INH NEB SOLN INH PRN; -BAMLANIVIMAB 700 MG, ETESEVIMAB 1,400 MG in NS 250 ML IV ONE; -CASIRIVIMAB/IMDEVIMAB 1,200 MG in NS 250 ML IV ONE; -EPINEPHrine INJ 1 MG/ML 1ML AMP IM PRN; -NS 1,000 ML IV SCH; -diphenhydrAMINE 50MG/ML VIAL (J1200) IV PRN; -methylPREDNISolone 125MG 2ML VIAL IV PRN
== END ==
LOC: M PLALAB 15:42
PROVIDERS: ATTEND Urology
DX: Z85.46 Personal history of malignant neoplasm of prostate (principal)

== ENCOUNTER 2021-09-07 15:43 | Emergency (ER) | payer MEDICARE ==
[~2021-09-07] VITALS: Ht 175.3 cm; Wt 82.3 kg
[2021-09-07 15:45] VITALS: BP 162/85
== END 2021-09-07 17:01 | disposition left against medical advice (07) ==
LOC: M ED 15:43
DX: Z53.29 Procedure and treatment not carried out because of patient's decision for other reasons (principal)

== ENCOUNTER 2021-09-11 09:12 | Emergency (ER) | payer MEDICARE ==
[~2021-09-11] VITALS: Ht 175.3 cm; Wt 81.8 kg
[2021-09-11 09:12] VITALS: BP 175/85
[2021-09-11] MEDS ORDERED: AMLO1TAB24 (09:28)
[2021-09-11] MEDS ORDERED: ALEN10TA5 (09:28)
[2021-09-11] MEDS ORDERED: LIDOCAINE W/EPINEPHRINE 1% 20ML VIAL SC ONE (09:40)
[2021-09-11] MEDS ORDERED: CEPH500C PO (10:01)
== END 2021-09-11 10:06 | disposition home or self-care (01) ==
LOC: M ED 09:12
DX: L72.0 Epidermal cyst (principal); I10 Essential (primary) hypertension; J44.9 Chronic obstructive pulmonary disease, unspecified; E78.5 Hyperlipidemia, unspecified; F33.9 Major depressive disorder, recurrent, unspecified; R51.9 Headache, unspecified; Z85.46 Personal history of malignant neoplasm of prostate; Z87.19 Personal history of other diseases of the digestive system; Z79.899 Other long term (current) drug therapy; Z79.82 Long term (current) use of aspirin; Z88.1 Allergy status to other antibiotic agents; Z88.8 Allergy status to other drugs, medicaments and biological substances; F17.210 Nicotine dependence, cigarettes, uncomplicated; F12.20 Cannabis dependence, uncomplicated

== ENCOUNTER → 2021-09-13 | Outpatient (CLI) | payer MEDICARE ==
[~2021-09-13] MED LIST changes: +ALEN10TA5; +AMLO1TAB24; +CEPH500C PO
== END ==
LOC: M RAD 09:51
PROVIDERS: ATTEND Family Medicine
DX: Z12.2 Encounter for screening for malignant neoplasm of respiratory organs (principal); Z79.51 Long term (current) use of inhaled steroids; Z79.899 Other long term (current) drug therapy

== ENCOUNTER → 2021-11-22 | Outpatient (REF) | payer MEDICARE | LOC: M SFHCPLAZ 14:33 | PROVIDERS: ATTEND Family Medicine | DX: E78.2 Mixed hyperlipidemia (principal); I10 Essential (primary) hypertension; Z13.1 Encounter for screening for diabetes mellitus ==

== ENCOUNTER → 2021-12-03 | Outpatient (CLI) | payer MEDICARE ==
[2021-12-03 18:37] LABS: BLOOD UREA NITROGEN 19 MG/DL (7-18); CALCIUM LEVEL 9.7 MG/DL (8.8-10.2); CARBON DIOXIDE LEVEL 27 MEQ/L (21-32); CHLORIDE LEVEL 106 MEQ/L (98-107); CHOLESTEROL LEVEL 196 MG/DL (<200); CHOLESTEROL RISK RATIO 2.722 (<5); CREATININE FOR GFR 1.01 MG/DL (0.70-1.30); GLOMERULAR FILTRATION RATE > 60.0 (>42); GLUCOSE, FASTING 94 MG/DL (70-100); HDL CHOLESTEROL 72 MG/DL (>40); HEMOGLOBIN A1c 5.5 %; LDL CHOLESTEROL 84 MG/DL (<100); NON-HDL-C 124 MG/DL; POTASSIUM SERUM 3.6 MEQ/L (3.5-5.1); PROSTATIC SPECIFIC AG MONITOR 0.34 NG/ML (< 4.00); SODIUM LEVEL 141 MEQ/L (136-145); TRIGLYCERIDES LEVEL 198 MG/DL (<150)
== END ==
LOC: M PLALAB 15:34
PROVIDERS: ATTEND Family Medicine
DX: E78.2 Mixed hyperlipidemia (principal); I10 Essential (primary) hypertension; Z13.1 Encounter for screening for diabetes mellitus; Z79.899 Other long term (current) drug therapy; Z85.46 Personal history of malignant neoplasm of prostate

== ENCOUNTER → 2021-12-03 | Outpatient (CLI) | payer MEDICARE | LOC: M PLALAB 15:38 | PROVIDERS: ATTEND Urology | DX: Z85.46 Personal history of malignant neoplasm of prostate (principal) ==

== ENCOUNTER → 2022-02-08 | Outpatient (CLI) | payer MEDICARE ==
[2022-02-08 10:31] LABS: HEMOGLOBIN 15.6 g/dl (13.5-17.5); MEAN CORPUSCULAR HEMOGLOBIN 33.4 pg (27.0-33.0); MEAN CORPUSCULAR HGB CONC 33.9 g/dl (32.0-36.5); MEAN CORPUSCULAR VOLUME 98.5 fl (80.0-96.0); PLATELET COUNT, AUTOMATED 257 10^3/uL (150-450); RED BLOOD COUNT 4.67 10^6/uL (4.30-6.10); WHITE BLOOD COUNT 7.5 10^3/uL (4.0-10.0)
[2022-02-08 11:12] LABS: ALBUMIN 3.7 GM/DL (3.2-5.2); ALT/SGPT 38 U/L (12-78); BILIRUBIN,TOTAL 0.5 MG/DL (0.2-1.0); BLOOD UREA NITROGEN 16 MG/DL (7-18); CARBON DIOXIDE LEVEL 31 MEQ/L (21-32); CHLORIDE LEVEL 100 MEQ/L (98-107); CREATININE FOR GFR 1.08 MG/DL (0.70-1.30); GLOMERULAR FILTRATION RATE > 60.0 (>42); GLUCOSE, FASTING 112 MG/DL (70-100); NT-PRO BNP 39 PG/ML (<125); POTASSIUM SERUM 3.9 MEQ/L (3.5-5.1); SODIUM LEVEL 136 MEQ/L (136-145); TOTAL PROTEIN 7.4 GM/DL (6.4-8.2)
[2022-02-08 11:45] LABS: HEPATITIS B SURFACE ANTIBODY NEGATIVE (POSITIVE)
[2022-02-08 12:24] LABS: HEPATITIS B CORE ANTIBODY IGM NEGATIVE (NEGATIVE); HEPATITIS C VIRUS ABY INDEX < 0.0 INDEX (<0.8)
== END ==
LOC: M RAD 09:10 → M LAB 09:10
PROVIDERS: ATTEND Student in an Organized Health Care Education/Training Program
DX: R14.0 Abdominal distension (gaseous) (principal); Z79.51 Long term (current) use of inhaled steroids; Z79.82 Long term (current) use of aspirin; Z79.899 Other long term (current) drug therapy

== ENCOUNTER → 2022-02-09 | Outpatient (CLI) | payer MEDICARE | LOC: M WHC 02-08 08:58 | PROVIDERS: ATTEND Student in an Organized Health Care Education/Training Program | DX: N28.1 Cyst of kidney, acquired (principal) ==

== ENCOUNTER → 2022-03-17 | Outpatient (REF) | payer MEDICARE | LOC: M SFHCPLAZ 17:47 | PROVIDERS: ATTEND Family Medicine | DX: D22.72 Melanocytic nevi of left lower limb, including hip (principal); Z85.828 Personal history of other malignant neoplasm of skin ==

== ENCOUNTER → 2022-04-07 | Outpatient (CLI) | payer MEDICARE ==
[2022-04-07 18:47] LABS: BLOOD UREA NITROGEN 15 MG/DL (7-18); CALCIUM LEVEL 8.8 MG/DL (8.8-10.2); CARBON DIOXIDE LEVEL 26 MEQ/L (21-32); CHLORIDE LEVEL 106 MEQ/L (98-107); CREATININE FOR GFR 0.93 MG/DL (0.70-1.30); GLOMERULAR FILTRATION RATE > 60.0 (>42); GLUCOSE, FASTING 87 MG/DL (70-100); POTASSIUM SERUM 3.6 MEQ/L (3.5-5.1); SODIUM LEVEL 140 MEQ/L (136-145)
== END ==
LOC: M PLALAB 15:32
PROVIDERS: ATTEND Student in an Organized Health Care Education/Training Program
DX: R14.0 Abdominal distension (gaseous) (principal)

== ENCOUNTER → 2022-04-13 | Outpatient (CLI) | payer MEDICARE ==
[~2022-04-13] MED LIST changes: +GASTROGRAFIN SOLUTION 30ML (Q9963) As Ordered ONE; +ISOVUE-370 76% 100ML VIAL As Ordered ONE
== END ==
LOC: M RAD 08:01
PROVIDERS: ATTEND Student in an Organized Health Care Education/Training Program
DX: R14.0 Abdominal distension (gaseous) (principal)
CPT/HCPCS: 74177; Q9963; Q9967

== ENCOUNTER → 2022-04-20 | Outpatient (REF) | payer MEDICARE ==
[~2022-04-20] MED LIST changes: -GASTROGRAFIN SOLUTION 30ML (Q9963) As Ordered ONE; -ISOVUE-370 76% 100ML VIAL As Ordered ONE
[2022-04-20 14:18] LABS: APPEARANCE, URINE MANUAL CLEAR (CLEAR); COLOR, URINE MANUAL YELLOW (YELLOW)
[2022-04-20 14:25] LABS: BILIRUBIN, URINE MANUAL NEGATIVE (NEGATIVE); BLOOD URINE MANUAL TRACE (NEGATIVE); GLUCOSE, URINE (UA) MANUAL NEGATIVE (NEGATIVE); KETONE, URINE MANUAL NEGATIVE (NEGATIVE); LEUKOCYTE ESTERASE, URINE MAN NEGATIVE (NEGATIVE); NITRITE, URINE MANUAL NEGATIVE (NEGATIVE); PROTEIN, URINE MANUAL 1+ mg/dL (NEGATIVE); UROBILINOGEN, URINE MANUAL NORMAL (NORMAL)
[2022-04-20 15:02] LABS: BACTERIA, URINE SMALL AMOUNT; MUCUS, URINE SMALL AMOUNT (NEGATIVE); RBC, URINE 0-1 /hpf (0-3); SQUAMOUS EPITHELIAL CELL URINE SMALL AMOUNT /hpf (SMALL AMT)
== END ==
LOC: M SFHCPLAZ 13:07
PROVIDERS: ATTEND Student in an Organized Health Care Education/Training Program
DX: M79.89 Other specified soft tissue disorders (principal)

== ENCOUNTER 2022-06-08 12:11 | Emergency (ER) | payer MEDICARE ==
[~2022-06-08] VITALS: Ht 172.7 cm; Wt 90.9 kg
[2022-06-08] MEDS ORDERED: BOOSTRIX/ADACEL VACCINE (DIPHTH/PERTUSS/ACELL/TETANUS) 0.5ML SYR IM ONE (15:20)
[2022-06-08] MEDS ORDERED: LIDOCAINE 2% MDV 20ML VIAL SC ONE (15:20)
[2022-06-08 16:00] VITALS: BP 130/78
== END 2022-06-08 16:03 | disposition home or self-care (01) ==
LOC: M ED 12:11
DX: S61.213A Laceration without foreign body of left middle finger without damage to nail, initial encounter (principal); W18.09XA Striking against other object with subsequent fall, initial encounter; R04.0 Epistaxis; F10.10 Alcohol abuse, uncomplicated; I10 Essential (primary) hypertension; E78.5 Hyperlipidemia, unspecified; J44.9 Chronic obstructive pulmonary disease, unspecified; K57.92 Diverticulitis of intestine, part unspecified, without perforation or abscess without bleeding; F41.9 Anxiety disorder, unspecified; F32.9 Major depressive disorder, single episode, unspecified; F17.200 Nicotine dependence, unspecified, uncomplicated; Z79.82 Long term (current) use of aspirin; Z79.899 Other long term (current) drug therapy; Z88.1 Allergy status to other antibiotic agents; Z88.8 Allergy status to other drugs, medicaments and biological substances

== ENCOUNTER → 2022-06-23 | Outpatient (CLI) | payer MEDICARE | LOC: M LAB 15:07 | PROVIDERS: ATTEND Urology | DX: C61 Malignant neoplasm of prostate (principal) ==

== ENCOUNTER 2022-06-27 14:13 | Emergency (ER) | payer MEDICARE ==
[~2022-06-27] VITALS: Ht 175.3 cm; Wt 91.0 kg
[2022-06-27 14:17] VITALS: BP 167/77
== END 2022-06-27 21:24 | disposition left against medical advice (07) ==
LOC: M ED 14:13
DX: Z53.21 Procedure and treatment not carried out due to patient leaving prior to being seen by health care provider (principal)

== ENCOUNTER → 2022-07-21 | Outpatient (REF) | payer MEDICARE | LOC: M SFHCPLAZ 17:42 | PROVIDERS: ATTEND Family Medicine | DX: D22.72 Melanocytic nevi of left lower limb, including hip (principal) ==

== ENCOUNTER → 2022-09-06 | Outpatient (CLI) | payer MEDICARE ==
[2022-09-06 14:45] LABS: BASO # 0.1 10^3/uL (0.0-0.2); BASO % 1.6 % (0.0-1.0); EOS # 0.4 10^3/uL (0.0-0.5); EOS % 5.5 % (0.0-3.0); HEMATOCRIT 43.5 % (42.0-52.0); HEMOGLOBIN 14.6 g/dl (13.5-17.5); LYMPH # 1.9 10^3/uL (1.5-5.0); LYMPH % 25.8 % (24.0-44.0); MEAN CORPUSCULAR HEMOGLOBIN 33.4 pg (27.0-33.0); MEAN CORPUSCULAR HGB CONC 33.6 g/dl (32.0-36.5); MEAN CORPUSCULAR VOLUME 99.5 fl (80.0-96.0); MONO # 0.7 10^3/uL (0.0-0.8); NEUTROPHILS # 4.3 10^3/uL (1.5-8.5); NEUTROPHILS % 57.3 % (36.0-66.0); PLATELET COUNT, AUTOMATED 344 10^3/uL (150-450); RED BLOOD COUNT 4.37 10^6/uL (4.30-6.10); WHITE BLOOD COUNT 7.5 10^3/uL (4.0-10.0)
[2022-09-06 14:51] LABS: ALBUMIN 3.7 G/DL (3.2-5.2); ALKALINE PHOSPHATASE 90 U/L (46-116); ALT/SGPT 59 U/L (7.0-40); AST/SGOT 36 U/L (<34); BILIRUBIN,TOTAL 0.4 MG/DL (0.3-1.2); BLOOD UREA NITROGEN 21 MG/DL (9-23); CALCIUM LEVEL 10.6 MG/DL (8.3-10.6); CARBON DIOXIDE LEVEL 30 MMOL/L (20-31); CHLORIDE LEVEL 102 MMOL/L (98-107); CREATININE FOR GFR 0.84 MG/DL (0.70-1.30); GLOMERULAR FILTRATION RATE > 60.0 (>42); GLUCOSE, FASTING 105 MG/DL (74-106); POTASSIUM SERUM 4.1 MMOL/L (3.5-5.1); SODIUM LEVEL 139 MMOL/L (136-145); THYROID STIMULATING HORMONE 2.566 uIU/ML (0.55-4.78); THYROXINE (T4) 7.6 UG/DL (4.5-10.9); TOTAL PROTEIN 6.7 G/DL (5.7-8.2)
[2022-09-06 14:52] LABS: FREE THYROXINE INDEX 2.5 % (1.4-3.8); T UPTAKE 33.5 % (22.5-37.0)
[2022-09-06 14:53] LABS: VITAMIN B12 LEVEL 619 PG/ML (211-911)
[2022-09-06 15:46] LABS: ERYTHROCYTE SEDIMENTATION RATE 45 mm/hr (0-20)
== END ==
LOC: M PLALAB 10:47
PROVIDERS: ATTEND Psychiatry & Neurology Neurology
DX: R41.3 Other amnesia (principal); D51.9 Vitamin B12 deficiency anemia, unspecified; Z11.3 Encounter for screening for infections with a predominantly sexual mode of transmission

== ENCOUNTER → 2022-10-05 | Outpatient (CLI) | payer MEDICARE | LOC: M CARPUL 12:18 | PROVIDERS: ATTEND Student in an Organized Health Care Education/Training Program | DX: R06.02 Shortness of breath (principal); N50.811 Right testicular pain ==

== ENCOUNTER → 2022-10-28 | Outpatient (CLI) | payer MEDICARE | LOC: M LAB 09:35 | PROVIDERS: ATTEND Urology | DX: C61 Malignant neoplasm of prostate (principal) ==

== ENCOUNTER → 2022-10-31 | Outpatient (CLI) | payer MEDICARE | LOC: M RAD 11:57 | PROVIDERS: ATTEND Urology | DX: N50.811 Right testicular pain (principal) ==

== ENCOUNTER → 2022-12-02 | Outpatient (CLI) | payer MEDICARE | LOC: M RAD 07:52 | PROVIDERS: ATTEND Student in an Organized Health Care Education/Training Program | DX: Z12.2 Encounter for screening for malignant neoplasm of respiratory organs (principal); Z87.891 Personal history of nicotine dependence; J47.9 Bronchiectasis, uncomplicated; J98.09 Other diseases of bronchus, not elsewhere classified ==

== ENCOUNTER → 2023-01-17 | Outpatient (CLI) | payer MEDICARE, MEDICAID | LOC: M WHC 09:25 | PROVIDERS: ATTEND Student in an Organized Health Care Education/Training Program | DX: Z12.31 Encounter for screening mammogram for malignant neoplasm of breast (principal); N62 Hypertrophy of breast | CPT/HCPCS: 77066; G0279 ==

== ENCOUNTER → 2023-02-20 | Outpatient (CLI) | payer MEDICARE, MEDICAID | LOC: M WHC 11:10 | PROVIDERS: ATTEND Student in an Organized Health Care Education/Training Program | DX: C61 Malignant neoplasm of prostate (principal); N62 Hypertrophy of breast; Z53.09 Procedure and treatment not carried out because of other contraindication ==

== ENCOUNTER → 2023-06-20 | Outpatient (CLI) | payer MEDICARE, MEDICAID | LOC: M PLALAB 11:38 | PROVIDERS: ATTEND Urology | DX: C61 Malignant neoplasm of prostate (principal) ==

== ENCOUNTER → 2023-06-20 | Outpatient (CLI) | payer MEDICARE, MEDICAID ==
[2023-06-20 14:17] LABS: BLOOD UREA NITROGEN 11 MG/DL (9-23); CALCIUM LEVEL 9.3 MG/DL (8.3-10.6); CARBON DIOXIDE LEVEL 30 MMOL/L (20-31); CHLORIDE LEVEL 104 MMOL/L (98-107); CREATININE FOR GFR 0.89 MG/DL (0.70-1.30); GLOMERULAR FILTRATION RATE > 60.0 (>42); GLUCOSE, FASTING 101 MG/DL (74-106); POTASSIUM SERUM 3.8 MMOL/L (3.5-5.1); SODIUM LEVEL 141 MMOL/L (136-145)
== END ==
LOC: M PLALAB 11:33
PROVIDERS: ATTEND Student in an Organized Health Care Education/Training Program
DX: R06.02 Shortness of breath (principal)

== ENCOUNTER → 2023-10-31 | Outpatient (CLI) | payer MEDICARE, MEDICAID ==
[2023-10-31 15:29] LABS: ALBUMIN 3.9 G/DL (3.2-5.2); ALKALINE PHOSPHATASE 88 U/L (46-116); ALT/SGPT 36 U/L (7.0-40); AST/SGOT 20 U/L (<34); BILIRUBIN,TOTAL 0.8 MG/DL (0.3-1.2); BLOOD UREA NITROGEN 23 MG/DL (9-23); CALCIUM LEVEL 10.1 MG/DL (8.3-10.6); CARBON DIOXIDE LEVEL 29 MMOL/L (20-31); CHLORIDE LEVEL 103 MMOL/L (98-107); CHOLESTEROL LEVEL 226 MG/DL (<200); CREATININE FOR GFR 1.18 MG/DL (0.70-1.30); GLOMERULAR FILTRATION RATE > 60.0 (>42); GLUCOSE, FASTING 98 MG/DL (74-106); POTASSIUM SERUM 3.8 MMOL/L (3.5-5.1); SODIUM LEVEL 139 MMOL/L (136-145); TOTAL PROTEIN 6.8 G/DL (5.7-8.2); TRIGLYCERIDES LEVEL 175 MG/DL (<150)
[2023-10-31 15:45] LABS: HEMOGLOBIN A1c 5.4 % (4.0-6.0)
== END ==
LOC: M PLALAB 11:35
PROVIDERS: ATTEND Student in an Organized Health Care Education/Training Program
DX: E78.2 Mixed hyperlipidemia (principal); F10.11 Alcohol abuse, in remission; Z13.1 Encounter for screening for diabetes mellitus

== ENCOUNTER → 2024-01-12 | Outpatient (CLI) | payer MEDICARE | LOC: M RAD 15:11 | PROVIDERS: ATTEND Family Medicine | DX: Z53.9 Procedure and treatment not carried out, unspecified reason (principal); F17.210 Nicotine dependence, cigarettes, uncomplicated ==

== ENCOUNTER → 2024-03-12 | Outpatient (CLI) | payer MEDICARE | LOC: M LAB 10:46 | PROVIDERS: ATTEND Urology | DX: C61 Malignant neoplasm of prostate (principal) ==

== ENCOUNTER → 2024-03-12 | Outpatient (CLI) | payer MEDICARE | LOC: M RAD 10:40 | PROVIDERS: ATTEND Student in an Organized Health Care Education/Training Program | DX: Z12.2 Encounter for screening for malignant neoplasm of respiratory organs (principal); F17.210 Nicotine dependence, cigarettes, uncomplicated; C61 Malignant neoplasm of prostate; R91.8 Other nonspecific abnormal finding of lung field; J47.9 Bronchiectasis, uncomplicated; Q61.02 Congenital multiple renal cysts ==

== ENCOUNTER 2024-04-27 10:32 | Emergency (ER) | payer MEDICAID, MEDICARE ==
[~2024-04-27] VITALS: Ht 172.7 cm; Wt 88.1 kg
[2024-04-27] MEDS ORDERED: OMEP-173 (10:52)
[2024-04-27] MEDS ORDERED: IRBE75TA11 (10:52)
[2024-04-27 11:34] LABS: BASO # 0.1 10^3/uL (0.0-0.2); BASO % 0.8 % (0.0-1.0); EOS # 0.9 10^3/uL (0.0-0.5); HEMATOCRIT 44.1 % (42.0-52.0); HEMOGLOBIN 15.4 g/dl (13.5-17.5); LYMPH # 1.6 10^3/uL (1.5-5.0); LYMPH % 15.2 % (24.0-44.0); MEAN CORPUSCULAR HEMOGLOBIN 33.8 pg (27.0-33.0); MEAN CORPUSCULAR HGB CONC 34.9 g/dl (32.0-36.5); MEAN CORPUSCULAR VOLUME 96.9 fl (80.0-96.0); MONO # 0.9 10^3/uL (0.0-0.8); MONO % 8.7 % (2.0-8.0); NEUTROPHILS # 7.2 10^3/uL (1.5-8.5); NEUTROPHILS % 66.7 % (36.0-66.0); PLATELET COUNT, AUTOMATED 221 10^3/uL (150-450); RED BLOOD COUNT 4.55 10^6/uL (4.30-6.10); WHITE BLOOD COUNT 10.8 10^3/uL (4.0-10.0)
[2024-04-27 11:58] LABS: ALBUMIN 3.4 G/DL (3.2-5.2); ALKALINE PHOSPHATASE 103 U/L (40-129); ALT/SGPT 29 U/L (7.0-40); AST/SGOT 38 U/L (<34); BILIRUBIN,DIRECT 0.2 MG/DL (<0.4); BILIRUBIN,TOTAL 0.7 MG/DL (0.3-1.2); BLOOD UREA NITROGEN 14 MG/DL (9-23); CALCIUM LEVEL 9.6 MG/DL (8.3-10.6); CARBON DIOXIDE LEVEL 29 MMOL/L (20-31); CHLORIDE LEVEL 100 MMOL/L (98-107); CREATININE FOR GFR 0.81 MG/DL (0.70-1.30); GLOMERULAR FILTRATION RATE > 60.0 (>42); GLUCOSE, FASTING 110 MG/DL (74-106); SODIUM LEVEL 135 MMOL/L (136-145)
[2024-04-27] MEDS: IPRATROPIUM 0.5MG/ALBUTEROL 2.5MG INH SOL UD 3ML (DUONEB) NEB ONE (12:07)
[2024-04-27] MEDS ORDERED: ISOVUE-370 76% 100ML VIAL As Ordered ONE (12:12)
[2024-04-27] MEDS: FUROSEMIDE 40MG/4ML VIAL IV ONE (12:31)
[2024-04-27] MEDS ORDERED: IPRATROPIUM 0.5MG/ALBUTEROL 2.5MG INH SOL UD 3ML (DUONEB) NEB PRN (13:10)
[2024-04-27] MEDS: methylPREDNISolone 125MG 2ML VIAL IV ONE (13:24)
[2024-04-27] MEDS ORDERED: AZIT500T5 PO (14:41)
[2024-04-27] MEDS ORDERED: VENTAER INH (15:01)
[2024-04-27] MEDS ORDERED: BREAMIS10 MC (15:02)
[2024-04-27 15:03] VITALS: BP 147/88; TEMP 98; O2SAT 93
== END 2024-04-27 15:10 | disposition home or self-care (01) ==
LOC: M ED 10:32
DX: J44.1 Chronic obstructive pulmonary disease with (acute) exacerbation (principal); B34.8 Other viral infections of unspecified site; I25.2 Old myocardial infarction; I10 Essential (primary) hypertension; E78.5 Hyperlipidemia, unspecified; J44.9 Chronic obstructive pulmonary disease, unspecified; Z85.46 Personal history of malignant neoplasm of prostate; F17.200 Nicotine dependence, unspecified, uncomplicated; Z79.82 Long term (current) use of aspirin; Z79.899 Other long term (current) drug therapy; Z88.1 Allergy status to other antibiotic agents; Z88.8 Allergy status to other drugs, medicaments and biological substances
CPT/HCPCS: 71045; 71275; 80048; 80076; 83880; 85025; 87486; 87581; 87633; 87798; 93005; 93041; 94640; 94760; 96374; 96375; 99285; J1940; J2919; Q9967

== ENCOUNTER → 2024-07-09 | Outpatient (CLI) | payer MEDICARE ==
[~2024-07-09] MED LIST changes: +AZIT500T5 PO; +BREAMIS10 MC; +IRBE75TA11; +OMEP-173
== END ==
LOC: M LAB 13:31
PROVIDERS: ATTEND Urology
DX: C61 Malignant neoplasm of prostate (principal)

== ENCOUNTER → 2024-07-16 | Outpatient (CLI) | payer MEDICARE ==
[2024-07-16 15:07] LABS: HEPATITIS B SURFACE ANTIBODY NEGATIVE (POSITIVE)
[2024-07-16 15:19] LABS: HEPATITIS B SURFACE ANTIGEN NEGATIVE (NEGATIVE)
[2024-07-16 15:39] LABS: HEPATITIS C VIRUS ABY INDEX 0.13 INDEX (<0.8)
== END ==
LOC: M PLALAB 12:20
PROVIDERS: ATTEND Student in an Organized Health Care Education/Training Program
DX: Z20.5 Contact with and (suspected) exposure to viral hepatitis (principal); Z11.59 Encounter for screening for other viral diseases

== ENCOUNTER → 2024-07-16 | Outpatient (REF) | payer MEDICARE | LOC: M SFHCPLAZ 11:52 | PROVIDERS: ATTEND Family Medicine | DX: Z53.21 Procedure and treatment not carried out due to patient leaving prior to being seen by health care provider (principal) ==

== ENCOUNTER → 2024-08-13 | Outpatient (CLI) | payer MEDICARE | LOC: M CARPUL 14:41 | PROVIDERS: ATTEND Student in an Organized Health Care Education/Training Program | DX: R60.0 Localized edema (principal); I50.30 Unspecified diastolic (congestive) heart failure; I08.0 Rheumatic disorders of both mitral and aortic valves; I37.1 Nonrheumatic pulmonary valve insufficiency ==

== ENCOUNTER → 2024-10-24 | Outpatient (CLI) | payer MEDICARE ==
[~2024-10-24] MED LIST changes: +LIDO1ADH93 TOP; -LIDO5DIS41 TOP
== END ==
LOC: M PLAIMG 09:18
PROVIDERS: ATTEND Student in an Organized Health Care Education/Training Program
DX: R60.0 Localized edema (principal)

== ENCOUNTER → 2025-01-03 | Outpatient (CLI) | payer MEDICARE, MEDICAID ==
[2025-01-03 14:46] LABS: ESTIMATED AVERAGE GLUCOSE 117.0 MG/DL (60-110)
[2025-01-03 15:02] LABS: PROSTATIC SPECIFIC AG MONITOR 0.27 NG/ML (< 4.00)
[2025-01-03 15:03] LABS: ALT/SGPT 20.0 U/L (7.0-40); AST/SGOT 15.0 U/L (<34); CALCIUM LEVEL 9.7 MG/DL (8.3-10.6); CARBON DIOXIDE LEVEL 30.0 MMOL/L (20-31); CHLORIDE LEVEL 103.0 MMOL/L (98-107); CHOLESTEROL LEVEL 202.0 MG/DL (<200); CHOLESTEROL RISK RATIO 4.24 (<5); CREATININE FOR GFR 1.03 MG/DL (0.70-1.30); GLOMERULAR FILTRATION RATE 74.8 (>42); LDL CHOLESTEROL 122.8 MG/DL (<100); NON-HDL-C 154.4 MG/DL; POTASSIUM SERUM 3.5 MMOL/L (3.5-5.1); SODIUM LEVEL 145.0 MMOL/L (136-145); TRIGLYCERIDES LEVEL 158.0 MG/DL (<150)
== END ==
LOC: M LAB 13:24
PROVIDERS: ATTEND Student in an Organized Health Care Education/Training Program
DX: E78.2 Mixed hyperlipidemia (principal); F10.21 Alcohol dependence, in remission; C61 Malignant neoplasm of prostate; Z13.1 Encounter for screening for diabetes mellitus

== ENCOUNTER → 2025-06-10 | Outpatient (CLI) | payer MEDICARE, MEDICAID ==
[~2025-06-10] MED LIST changes: +ACYC200C10 PO; -ACYC200C8 PO; -EZET10TA21 PO; +EZET10TA57 PO
== END ==
LOC: M RAD 07:38
DX: Z87.898 Personal history of other specified conditions (principal)